=== PATIENT | male | born 1945 | race Caucasian/White ===

== ENCOUNTER 2022-01-17 22:12 | Inpatient (IN) ==
--- NOTE | 2022-01-17 22:56 | Internal Med History&Physical ---
HPI History of Present Illness Patient information: Note initiated : 01/17/22 at 10:55 pm Service Date, if different from initiated Date: [] Patient: Cliff Denton 76 y/o M admitted on for Pneumonia. Chief Complaint: [] History of present illness: Mr. Denton is a 76 year old male who presented to [facility] emergency department for a cough and shortness of breath. Patient does have an extensive medical history that includes oxygen dependent COPD, hypertension, hyperlipidemia, type 2 diabetes mellitus, chronic kidney disease stage III, GERD, obstructive sleep apnea. Provider at the emergency department felt the patient had pneumonia and started the patient on ceftriaxone. At [facility], the patient was afebrile, no leukocytosis, procalcitonin only mildly elevated, a CTA chest did not reveal any evidence of a pulmonary embolism or pulmonary infiltrates. There was questionable pulmonary congestion on the CTA chest. Review of systems Constitutional: no fever, fatigue, or weight loss Eyes: no vision changes or pain Cardiovascular: no chest pain, no palpitations Respiratory: Positive for cough and dyspnea Gastrointestinal: no abdominal pain, no nausea, vomiting, or diarrhea Genitourinary: no dysuria or difficulty voiding Musculoskeletal: no arthralgia or myalgia Integumentary: no skin lesion or wound Neurological: no focal weakness or numbness Psychiatric: no anxiety or depression Physical exam Head: Atraumatic, normal inspection. Eyes: normal appearance, no scleral icterus. Neck: full ROM Respiratory: Nasal cannula oxygen 4 L/min, no respiratory distress. Cardiovascular: normal rate and rhythm, S1, S2. GI/Abdominal: soft, nontender, no guarding. Extremities: full range of motion, nontender. Neurological: CN II-XII intact, intact motor, intact sensation. Psychiatric: normal mood. Skin: warm, normal color PFSH PFSH All Active Problems (Updated 10/24/21 @ 11:39 by JOSIAH Clark) Shortness of breath (Chronic) Gait instability (Chronic) GERD (gastroesophageal reflux disease) (Chronic) Nasal congestion (Chronic) Constipation (Chronic) Carotid bruit (Chronic) Bilateral carotid artery stenosis (Chronic) Cardiac murmur, unspecified (Chronic) Stable angina (Chronic) Blurry vision (Chronic) Type 2 diabetes mellitus with hyperglycemia (Chronic) Leg swelling (Chronic) Fatigue (Chronic) Chest discomfort (Chronic) Hypoxemia (Chronic) Mixed insomnia (Chronic) Benign prostatic hyperplasia (Chronic) Barretts esophagus (Chronic) Allergic rhinitis (Chronic) Cerebrovascular disease (Chronic) Hypertensive disorder (Chronic) Obstructive sleep apnea (Chronic) Dementia (Chronic) Gout (Chronic) Hyperlipidemia (Chronic) COPD (chronic obstructive pulmonary disease) (Chronic) Medical History (Updated 10/24/21 @ 11:39 by JOSIAH Clark) Allergic rhinitis Barretts esophagus Benign prostatic hyperplasia Bilateral carotid artery stenosis Blurry vision Cardiac murmur, unspecified Carotid bruit Cerebrovascular disease Chest discomfort Constipation COPD (chronic obstructive pulmonary disease) Dementia with lewy bodies Fatigue Gait instability GERD (gastroesophageal reflux disease) Gout Hyperlipidemia Hypertensive disorder Hypoxemia Leg swelling Mixed insomnia Nasal congestion Obstructive sleep apnea Shortness of breath Stable angina Type 2 diabetes mellitus with hyperglycemia Surgical History History of hernia repair (~1996) History of lumpectomy (~2013) History of surgery (~2002) "Stoma cap" Family History Mother Chronic obstructive lung disease Arthritis Father Neoplasm of brain Social History marital status: occupational status: retired occupation: [employer]-retired smoking status: Former smoker quit date: 04/14/07 pack-years: 52 smoking status start date: 04/14/1954 smoking status stop date: 04/14/07 alcohol intake frequency: holiday/special occasion only substance use type: does not use MEDS/ALLERGIES Home Medications and Allergies Home Medications Medication Instructions Recorded Confirmed Type allopurinol 300 mg tablet 300 mg PO QDAY 07/03/20 10/24/21 History aspirin 81 mg tablet,delayed 81 mg PO QDAY 07/03/20 10/24/21 History release duloxetine 30 mg capsule,delayed 30 mg PO QDAY 07/03/20 10/24/21 History release guaifenesin 600 mg tablet, 600 mg PO TID 07/03/20 10/24/21 History extended release 12 hr (Mucus Relief ER) loratadine 10 mg tablet 10 mg PO QDAY 07/03/20 10/24/21 History losartan 100 mg tablet 100 mg PO QDAY 07/03/20 10/24/21 History metoprolol succinate 100 mg 100 mg PO QDAY 07/03/20 10/24/21 History tablet,extended release 24 hr pioglitazone 15 mg tablet 15 mg PO QDAY 07/03/20 10/24/21 History rosuvastatin 10 mg tablet 10 mg PO QDAY 07/03/20 10/24/21 History donepezil 5 mg tablet 5 mg PO QDAY 08/10/20 10/24/21 History famotidine 20 mg tablet 20 mg PO QHS 08/10/20 10/24/21 History hydrochlorothiazide 12.5 mg tablet 12.5 mg PO QAM 08/10/20 06/20/21 History magnesium hydroxide [Milk of PO 08/10/20 10/24/21 History Magnesia] albuterol sulfate 90 mcg/actuation 2 puff inhalation Q6H PRN 09/27/20 10/24/21 Rx aerosol inhaler shortness of breath or wheezing #8.5 grams budesonide 160 mcg-glycopyr 9 2 inh inhalation BID #10.7 grams 06/27/21 10/24/21 Rx mcg-formot 4.8 mcg/actuation HFA inhaler (Breztri Aerosphere) carboxymethylcellulose sodium 0.5 1 drp ophthalmic (eye) TID 10/24/21 10/24/21 History % eye drops (Refresh Tears) hydrocortisone 1 % topical cream 1 applic topical BID PRN 10/24/21 10/24/21 History polyethylene glycol 3350 17 4 g PO QHS 10/24/21 10/24/21 History gram/dose oral powder (Miralax) quetiapine 300 mg tablet 600 mg PO QHS 10/24/21 10/24/21 History Allergies Allergy/AdvReac Type Severity Reaction Status Date / Time No Known Drug Allergies Allergy Verified 10/24/21 10:30 A/P Narrative A/P Narrative: Assessment: 76 year old male with a history of oxygen dependent COPD, HTN, HLD, DM II, CKD III, GERD, JET, admitted for community acquired pneumonia. #Cough and dyspnea of uncertain etiology #COPD with oxygen dependence #Type 2 diabetes mellitus #Hypertension #Hyperlipidemia #GERD #Valadez's esophagus #Dementia #JET Plan -Admission CBC and IPP, procalcitonin. -Lasix 60 mg IV once. -Sputum gram stain and culture. -Follow blood cultures from [facility]. -Duonebs Q6 hrs and albuterol prn. -Humalog SSI-low dose. -Oxygen supplementation. -Home medication reconcilliation. -PT consult. -Consistent carbohydrate diet. -DVT ppx: Heparin SQ Time Spent With Patient Time: Total time spent is greater than 50% in coordination of care (as documented) at patient's floor/unit and/or counseling patient:
[2022-01-18] MEDS ORDERED: ONDANSETRON 4 MG/2 ML VIAL IV PRN (00:53)
[2022-01-18] MEDS ORDERED: AZITHROMYCIN 500 MG in DEXTROSE 5% IN WATER 250 ML IV SCH (00:53)
[2022-01-18] MEDS ORDERED: DEXTROSE 31 GM ORAL.SUSP PO PRN (00:53)
[2022-01-18] MEDS ORDERED: cefTRIAXone 1 GM VIAL IV SCH (00:53)
[2022-01-18] MEDS ORDERED: ALBUTEROL SULFATE 2.5 MG/3 ML NEBULIZER NEB PRN (00:53)
[2022-01-18] MEDS ORDERED: DEXTROSE 50% 50 ML VIAL IV PRN (00:53)
--- OUTSIDE RECORDS SUMMARY | 2022-01-18 00:53 | External Medical Summary ---
:1945 Author Care Team Providers Name Role Phone HORTENSIA SIMPSON DO Primary Care Provider [phone] Allergies Code Code System Name Reaction Severity Status Onset NKDA Medications Name Status Start Date Stop Date allopurinol 300 mg tablet Active Not av ailable amlodipine 10 mg tablet Active Not avai lable Anoro Ellipta 62.5 mcg-25 mcg/actuation powder for Active Not available inhalation aspirin 81 mg tablet,delayed release Active Not available TAKE 1 TABLET BY MOUTH EVERY DAY Colace Clear 50 mg capsule Completed 10/26 Take 1 capsule every day by oral route as directed. Combivent Respimat 20 mcg-100 mcg/actuation solution for Complet ed 10/27/2019 inhalation donepezil 10 mg tablet Active Not avail able donepezil 5 mg tablet Active Not availa ble duloxetine 30 mg capsule,delayed release Active Not available fluconazole 150 mg tablet Completed 2018 fluticasone propionate 50 mcg/actuation nasal Active Not available spray,suspension hydrochlorothiazide 25 mg tablet Active Not available ipratropium bromide 42 mcg (0.06 %) nasal spray Completed 10/27/2019 ketorolac 0.5 % eye drops Completed 2019 loratadine 10 mg tablet Active Not avai lable TAKE ONE TABLET BY MOUTH EVERY DAY losartan 100 mg tablet Active Not avail able TAKE 1 TABLET BY MOUTH DAILY Metamucil 0.4 gram capsule Active Not a vailable Take 2 capsules every day by oral route in the morning. metoprolol succinate ER 100 mg tablet,extended release Active Not available 24 hr Milk of Magnesia Active Not available Mucus Relief ER 600 mg tablet, extended release Active Not available TAKE 1 TABLET BY MOUTH 3 TIMES DAILY WITH 8 (OZ) OF WATER ldbkebaz-rskxpmenr-mlfxnzqb 3.5 mg/mL-10,000 Completed 10/27/2019 unit/mL-0.1% eye drops nystatin 100,000 unit/mL oral suspension Completed 10/27/2019 omeprazole 40 mg capsule,delayed release Completed 10/27/2019 oxygen Active Not available 2L pantoprazole 40 mg tablet,delayed release Active Not available TAKE ONE TABLET BY MOUTH EVERY DAY prednisolone acetate 1 % eye drops,suspension Active Not available prednisone 10 mg tablet Completed 03/05/20 19 quetiapine 25 mg tablet Completed 10/27/19 20 quetiapine 50 mg tablet Active Not avai lable rosuvastatin 10 mg tablet Active Not av ailable TAKE 1 TABLET BY MOUTH EVERY DAY sertraline 50 mg tablet Active Not avai lable simvastatin 20 mg tablet Completed 019 tamsulosin 0.4 mg capsule Active Not av ailable trazodone 100 mg tablet Active Not avai lable trazodone 50 mg tablet Active Not avail able Trelegy Ellipta 100 mcg-62.5 mcg-25 mcg powder for inhalation Ac tive Not available Inhale 1 puff every day by inhalation route for 30 days. Ventolin HFA 90 mcg/actuation aerosol inhaler Completed 10/27/2019 Problems Name Status Onset Date Source Hyperlipidemia Active 10/27/2019 Gout Active 10/27/2019 Obstructive Sleep Apnea Syndrome Active 10/27/2019 Hypertensive Disorder Active 10/27/2019 Cerebrovascular Disease Active 10/27/2019 Allergic Rhinitis Active 10/27/2019 Chronic Obstructive Lung Disease Active 10/27/2019 Valadez's Esophagus Active 10/27/2019 Benign Prostatic Hyperplasia Active 10/27/2019 Mixed Insomnia Active 10/27/2019 Hypoxemia Active 10/27/2019 Ex-smoker Active 10/27/2019 Dementia Active 10/27/2019 Procedures Date Name Performed by 04/14/2013 Lumpectomy Information not avai lable 04/14/2002 Stoma Cap Information not avai lable 04/14/1996 Hernia Repair Information not avai lable 1945 Hernia Repair W/mesh Information not sina ilable Results Lab Results None recorded. Past Encounters None recorded. Social History Tobacco Smoking Status Former Smoker (1 pack per day) Notes : Quit in 2007 Vaccine List Vaccine Type influenza, injectable, quadrivalent 01/12/2019 Plan of Care Reminders Provider Appointments None recorded. Lab None recorded. Referral None recorded. Procedures None recorded. Surgeries None recorded. Imaging None recorded. Vitals 2020 01:00PM Established Patient 30 Height Weight BMI Blood Pressure 5 ft 11 in 240 lbs 33.5 kg/m2 152/72 mm[Hg] 12/29/2019 11:45AM Post-Op Height Weight BMI Blood Pressure 5 ft 11 in 243 lbs 33.9 kg/m2 110/62 mm[Hg] 10/27/2019 01:30PM New Patient 58 Height Weight BMI Blood Pressure 5 ft 11 in 240 lbs 33.5 kg/m2 148/66 mm[Hg] 03/05/2019 08:30AM New Patient 30 Height Weight BMI Blood Pressure 5 ft 11 in 228 lbs 31.8 kg/m2 (1) 141/64 mm[H g] (2) 158/67 mm[Hg ]
--- OUTSIDE RECORDS SUMMARY | 2022-01-18 00:53 | External Medical Summary ---
:1945 Author Care Team Providers Name Role Phone VIOLETTA ARIAS DDS Dentist [phone] Allergies Code Code System Name Reaction Severity Status Onset NKDA Medications Name Status Start Date Stop Date albuterol sulfate Active Not available albuterol sulfate HFA 90 mcg/actuation aerosol inhaler Active Not available inhale two puffs by mouth every six millicent rs as needed for shortness of breath or wheezing allopurinol Active Not available allopurinol 300 mg tablet Active Not av ailable TAKE ONE TABLET BY MOUTH EVERY DAY amlodipine 10 mg tablet Active Not avai lable TAKE ONE TABLET BY MOUTH EVERY DAY amlodipine 5 mg tablet Active Not avail able TAKE ONE TABLET BY MOUTH EVERY DAY (DOSE DECREASE) amoxicillin 875 mg-potassium clavulanate 125 mg tablet Active Not available TAKE ONE TABLET BY MOUTH EVERY 12 HOURS aspirin Active Not available aspirin 81 mg tablet,delayed release Active Not available TAKE ONE TABLET BY MOUTH EVERY DAY ClearLax 17 gram oral powder packet Active Not available MIX ONE PACKET WITH EIGHT OUNCES OF IN FLUID AND DRINK ONCE DEBORAH LY Cymbalta Active Not available donepezil Active Not available donepezil 10 mg tablet Active Not avail able take one half tablet by mouth twice daily duloxetine 30 mg capsule,delayed release Active Not available take one capsule by mouth at bedtime (stop trazodone) famotidine Active Not available famotidine 20 mg tablet Active Not avai lable take one tablet by mouth at bedtime guaifenesin Active Not available hydrochlorothiazide 12.5 mg tablet Active Not available TAKE ONE TABLET BY MOUTH DAILY hydrochlorothiazide 25 mg tablet Active Not available TAKE ONE TABLET BY MOUTH EVERY DAY hydrocortisone Active Not available ipratropium bromide 42 mcg (0.06 %) nasal spray Active Not available instill ONE SPRAY in EACH nostril FOUR TIMES DAILY DIRECTED loratadine Active Not available loratadine 10 mg tablet Active Not avai lable TAKE ONE TABLET BY MOUTH EVERY DAY losartan Active Not available losartan 100 mg tablet Active Not avail able TAKE ONE TABLET BY MOUTH EVERY DAY metoprolol succinate Active Not availab le metoprolol succinate ER 100 mg tablet,extended release 24 hr Act rosio Not available take one tablet by mouth daily Milk of Magnesia Active Not available Milk of Magnesia 400 mg/5 mL oral suspension Active Not available give 30 ml once daily for constipation Miralax Active Not available montelukast 10 mg tablet Active Not sina ilable take one tablet by mouth once daily (due for appointment) Mucus Relief ER 600 mg tablet, extended release Active Not available take one tablet by mouth three times daily with 8 ounces of elvia er mupirocin 2 % topical ointment Active N ot available apply a small amount topically to affec emilia area three times daily for five days oxygen Active Not available pantoprazole 40 mg tablet,delayed release Active Not available TAKE ONE TABLET BY MOUTH EVERY DAY pioglitazone Active Not available pioglitazone 15 mg tablet Active Not av ailable TAKE ONE TABLET BY MOUTH EVERY DAY WITH A MEAL PreviDent 5000 Booster Plus 1.1 % dental paste Active Not available BRUSH TWICE DAILY DIRECTED FOR 30 DAYS quetiapine Active Not available quetiapine 100 mg tablet Active Not sina ilable TAKE ONE TABLET BY MOUTH AT BEDTIME quetiapine ER 150 mg tablet,extended release 24 hr Active Not available TAKE ONE TABLET BY MOUTH AT BEDTIME FOR ONE MONTH, TO BE ADDED TO 400 MG AT BEDTIME FOR TOTAL BEDTIME DOSE OF 550 MG quetiapine ER 200 mg tablet,extended release 24 hr Active Not available TAKE ONE TABLET BY MOUTH AT BEDTIME (DOSE INCREASE) quetiapine ER 300 mg tablet,extended release 24 hr Active Not available TAKE ONE TABLET BY MOUTH AT BEDTIME (DOSE INCREASE) quetiapine ER 400 mg tablet,extended release 24 hr Active Not available TAKE 1 TABLET BY MOUTH AT BEDTIME quetiapine ER 50 mg tablet,extended release 24 hr Active Not available TAKE 2 TABLETS BY MOUTH EVERY DAY rosuvastatin Active Not available rosuvastatin 10 mg tablet Active Not av ailable TAKE 1 TABLET BY MOUTH EVERY DAY sertraline 50 mg tablet Active Not avai lable take one tablet by mouth daily tamsulosin 0.4 mg capsule Active Not av ailable TAKE TWO CAPSULES BY MOUTH EVERY DAY Trelegy Ellipta Active Not available Problems None recorded. Procedures None recorded. Results Lab Results None recorded. Past Encounters 06/27/[address]: [address] [place] [address], [place] [address], Ph. 05/17/2021 Preventive Dental Procedure; Dental Becky es Violetta Arias, DDS: [address] [place] [id number], Ph. Social History Tobacco Smoking Status Former Smoker Notes: quit 200 8 Vaccine List None recorded. Plan of Care Patient Instructions [place] and floss 2-3 times daily Eat a balanced diet Limit soda/sports drinks consumption to lower your risk of tooth decay Recommend desensitizing toothpaste for s ensitivity Recommend OTC fluoride rinse (ACT or oth ers) Use a soft bristle toothbrush Follow up with your hygienist Reminders Provider Appointments None recorded. Lab None recorded. Referral None recorded. Procedures None recorded. Surgeries None recorded. Imaging None recorded. Vitals Blood Pressure 128/58 mm[Hg]
[2022-01-18] MEDS: 0.9 % SODIUM CHLORIDE 10 ML SYRINGE IV SCH ×4 (01:45→21:42)
[2022-01-18] MEDS: IPRATROPIUM/ALBUTEROL 3 ML AMPUL.NEB NEB SCH ×4 (01:45→18:57)
[2022-01-18] MEDS ORDERED: IPRATROPIUM/ALBUTEROL 3 ML AMPUL.NEB NEB ONE (01:52)
[2022-01-18 02:38] LABS: Basophils # (Auto) 0.04 K/mcL (0.00-0.30); Basophils % (Auto) 0.4 % (0.0-2.0); Eosinophils # (Auto) 0.12 K/mcL (0.00-0.70); Eosinophils % (Auto) 1.2 % (0.0-7.0); Hematocrit 33.8 % (40.1-51.0); Hemoglobin 10.6 g/dL (13.7-17.5); Lymphocytes # (Auto) 1.58 K/mcL (1.50-4.80); Lymphocytes % (Auto) 15.5 % (15.5-49.0); Mean Cell Volume 103.4 fL (80.0-100.0); Mean Corpuscular HGB Conc 31.4 g/dL (31.0-36.0); Mean Platelet Volume 9.2 fL (8.8-12.5); Monocytes # (Auto) 1.28 K/mcL (0.10-0.90); Monocytes % (Auto) 12.6 % (1.0-12.0); Neutrophils % (Auto) 69.3 % (38.0-78.0); Platelet Count 227 K/mcL (140-440); RBC 3.27 M/mcL (4.63-6.08); WBC 10.2 K/mcL (4.5-11.0)
[2022-01-18 06:25] LABS: Basophils # (Auto) 0.03 K/mcL (0.00-0.30); Basophils % (Auto) 0.3 % (0.0-2.0); Eosinophils % (Auto) 0.9 % (0.0-7.0); Hematocrit 31.1 % (40.1-51.0); Hemoglobin 10.4 g/dL (13.7-17.5); Lymphocytes % (Auto) 11.2 % (15.5-49.0); Mean Cell Volume 94.8 fL (80.0-100.0); Mean Corpuscular HGB Conc 33.4 g/dL (31.0-36.0); Mean Platelet Volume 9.1 fL (8.8-12.5); Monocytes # (Auto) 1.22 K/mcL (0.10-0.90); Monocytes % (Auto) 11.3 % (1.0-12.0); Neutrophils % (Auto) 75.5 % (38.0-78.0); Platelet Count 265 K/mcL (140-440); RBC 3.28 M/mcL (4.63-6.08); Red Cell Distribution Width 14.9 % (11.5-14.5); WBC 10.8 K/mcL (4.5-11.0)
[2022-01-18 06:44] LABS: ALT/SGPT 26 U/L (<40); AST/SGOT 27 U/L (<40); Albumin 3.2 gm/dL (3.2-5.2); Albumin/Globulin Ratio 0.9 (1.0-2.3); Alkaline Phosphatase 100 U/L (39-117); Bilirubin,Direct 0.4 mg/dL (<0.3); Bilirubin,Total 0.7 mg/dL (0.1-1.0); Blood Urea Nitrogen 35 mg/dL (8-23); Calcium 8.7 mg/dL (8.6-10.4); Carbon Dioxide 21 mmol/L (22-30); Chloride 99 mmol/L (96-108); Globulin 3.7 gm/dL (2.2-3.7); Glomerular Filtration Rate 40; Glucose 145 mg/dL (70-105); Lactate Dehydrogenase 233 U/L (135-225); Phosphorous 3.2 mg/dL (2.5-4.5); Triglycerides 84 mg/dL (<150); Uric Acid 6.4 mg/dL (2.5-8.0)
[2022-01-18] MEDS: INSULIN LISPRO 1 UNIT/0.01 ML UNIT SQ SCH ×4 (07:35→21:58)
[2022-01-18] MEDS: DOCUSATE SODIUM 100 MG CAPSULE PO SCH ×2 (10:27→21:42)
[2022-01-18] MEDS: HEPARIN 5,000 UNIT/ML VIAL SQ SCH ×2 (10:27→21:41)
[2022-01-18] MEDS ORDERED: IOPAMIDOL 100 ML BOTTLE IV ONE (12:44)
--- NOTE | 2022-01-18 13:02 | Cat Scan Report ---
INDICATION: Acute on chronic hypoxia, elevated d-dimer. COMPARISON: Previous chest x-ray dated 01/17/2022. Previous CT scan dated 10/04/2020 TECHNIQUE: Axial images obtained through the chest. 80ml Isovue 370 injected intravenously, and scanning was performed during pulmonary arterial phase. Sagittally and coronally reformatted images were obtained. MIP reformatted images. FINDINGS: Lungs:There is centrilobular emphysema with upper lobe predominance. Appearance is consistent with smoking history. There is no parenchymal consolidation. No evidence for significant pneumonia. There is peribronchial thickening consistent with bronchitis. Interstitial edema is possible. There is increased reticular abnormality which may also be related to interstitial edema. There is mild honeycombing at both lung bases. There is no bronchiectasis. Pulmonary fibrosis is suspected. Continued follow-up recommended. Mediastinum, vascular:Main pulmonary artery, right pulmonary artery, left pulmonary artery are negative. No intraluminal filling defects. No lobar, segmental, or subsegmental emboli. Thoracic aorta is negative. No aneurysmal dilatation. There is borderline enlargement of the main pulmonary artery. This measures 3.0 cm in cross-sectional diameter No pathologic mediastinal or hilar adenopathy Heart:No cardiomegaly. No pericardial effusion. No reflux of contrast material into the inferior cava or hepatic veins There is severe coronary artery calcification Pleura:No significant pleural effusion. No pleural mass or calcification Axilla, supraclavicular regions, chest wall:No pathologic axillary or supraclavicular adenopathy. Musculoskeletal:Negative thoracic spine. No compression fracture. No lytic lesion. No rib or sternal lesions Upper Abdomen:Small hiatal hernia. Otherwise negative IMPRESSION: 1. Negative pulmonary CTA 2. Centrilobular emphysema 3. Reticular abnormality and mild honeycombing. Pulmonary fibrosis is possible. 4. Peribronchial thickening be due to bronchitis or suspicious edema 5. Severe coronary artery calcification 6. Small hiatal hernia The exam was performed using radiation dose optimization techniques including, but not limited to, automated exposure control, adjustment of the mA and/or kV according to patient size and use of iterative reconstruction technique. Interpreted and Authenticated by: Lico Marcos 01/18/22
[2022-01-18] MEDS ORDERED: FUROSEMIDE 100 MG/10 ML VIAL IV SCH (14:10)
[2022-01-18] MEDS: BUDESONIDE 1 PUFF INHALER INH SCH (19:00)
[2022-01-18] MEDS ORDERED: POLYETHYLENE GLYCOL 3350 17 GM PACKET PO PRN (19:34)
[2022-01-18] MEDS ORDERED: QUEtiapine 100 MG TABLET PO ONE (21:00)
[2022-01-18] MEDS: FAMOTIDINE 20 MG TABLET PO SCH (21:41)
[2022-01-18] MEDS: SENNOSIDES 1 TABLET PO SCH (21:41)
[2022-01-18] MEDS: guaiFENesin 600 MG TAB.SR.12H PO SCH (21:41)
[2022-01-19] MEDS: IPRATROPIUM/ALBUTEROL 3 ML AMPUL.NEB NEB SCH ×4 (01:04→19:10)
[2022-01-19] MEDS: 0.9 % SODIUM CHLORIDE 10 ML SYRINGE IV SCH ×3 (05:35→20:34)
[2022-01-19 06:42] LABS: Basophils # (Auto) 0.04 K/mcL (0.00-0.30); Basophils % (Auto) 0.4 % (0.0-2.0); Eosinophils # (Auto) 0.23 K/mcL (0.00-0.70); Eosinophils % (Auto) 2.6 % (0.0-7.0); Hematocrit 31.4 % (40.1-51.0); Hemoglobin 10.5 g/dL (13.7-17.5); Lymphocytes # (Auto) 1.41 K/mcL (1.50-4.80); Lymphocytes % (Auto) 15.8 % (15.5-49.0); Mean Cell Volume 94.9 fL (80.0-100.0); Mean Corpuscular HGB Conc 33.4 g/dL (31.0-36.0); Mean Platelet Volume 9.1 fL (8.8-12.5); Monocytes # (Auto) 0.94 K/mcL (0.10-0.90); Monocytes % (Auto) 10.5 % (1.0-12.0); Neutrophils % (Auto) 68.7 % (38.0-78.0); Platelet Count 276 K/mcL (140-440); RBC 3.31 M/mcL (4.63-6.08); Red Cell Distribution Width 15.3 % (11.5-14.5)
[2022-01-19] MEDS: INSULIN LISPRO 1 UNIT/0.01 ML UNIT SQ SCH ×4 (07:05→20:34)
[2022-01-19 07:28] LABS: ALT/SGPT 27 U/L (<40); AST/SGOT 27 U/L (<40); Albumin 3.6 gm/dL (3.2-5.2); Albumin/Globulin Ratio 1.3 (1.0-2.3); Alkaline Phosphatase 102 U/L (39-117); Bilirubin,Direct 0.3 mg/dL (<0.3); Bilirubin,Total 0.5 mg/dL (0.1-1.0); Blood Urea Nitrogen 26 mg/dL (8-23); Calcium 8.7 mg/dL (8.6-10.4); Carbon Dioxide 23 mmol/L (22-30); Chloride 100 mmol/L (96-108); Globulin 2.7 gm/dL (2.2-3.7); Glomerular Filtration Rate 47; Glucose 124 mg/dL (70-105); Lactate Dehydrogenase 233 U/L (135-225); Phosphorous 4.1 mg/dL (2.5-4.5); Triglycerides 165 mg/dL (<150)
[2022-01-19] MEDS: BUDESONIDE 1 PUFF INHALER INH SCH ×2 (08:05→21:26)
[2022-01-19] MEDS: ASPIRIN 81 MG TAB.CHEW PO SCH (08:06)
[2022-01-19] MEDS: DOCUSATE SODIUM 100 MG CAPSULE PO SCH ×2 (08:08→19:03)
[2022-01-19] MEDS: guaiFENesin 600 MG TAB.SR.12H PO SCH ×3 (08:08→20:34)
[2022-01-19] MEDS: METOPROLOL SUCCINATE 50 MG TAB.XL.24H PO SCH (08:08)
[2022-01-19] MEDS: ATORVASTATIN 20 MG TABLET PO SCH (08:09)
[2022-01-19] MEDS: DONEPEZIL 10 MG TABLET PO SCH (08:09)
[2022-01-19] MEDS: HEPARIN 5,000 UNIT/ML VIAL SQ SCH ×2 (08:10→20:34)
[2022-01-19] MEDS: LORATADINE 10 MG TABLET PO SCH (08:10)
[2022-01-19] MEDS: DULoxetine 30 MG CAPSULE PO SCH (08:10)
[2022-01-19] MEDS: ALLOPURINOL 300 MG TABLET PO SCH (08:10)
[2022-01-19] MEDS: NUPLAZID 34 MG CAPSULE PO SCH (08:21)
[2022-01-19] MEDS ORDERED: FUROSEMIDE 100 MG/10 ML VIAL IV ONE (10:43)
--- NOTE | 2022-01-19 14:09 | Internal Med Progress Note ---
SUBJECTIVE Subjective Patient information: Note initiated : 01/19/22 at 2:05 pm Service Date, if different from initiated Date: [] Patient: Cliff Denton 76 y/o M admitted on 01/18/22 for Pneumonia. Chief Complaint: [] Interval history: Mr. Denton is a 76 year old male who presented to [facility] emergency department for a cough and shortness of breath. Patient does have an extensive medical history that includes oxygen dependent COPD, hypertension, hyperlipidemia, type 2 diabetes mellitus, chronic kidney dis ease stage III, GERD, obstructive sleep apnea. Provider at the emergency department felt the patient had pneumonia and started the patient on ceftriaxone. At [facility], the patient was afebrile, no leukocytosis, procalcitonin only mildly elevated, a CTA chest did not reveal any evidence of a pulmonary embolism or pulmonary infiltrates. There was questionable pulmonary congestion on the CTA chest. 01/19 Vitals similar to yesterday, appears to be a resting more comfortably today. 1 more dose of Lasix 60 mg IV today. Patient is likely near his baseline. CTA chest was negative for pulmonary embolism, there was reticular abnormality and mild honeycombing possibly secondary to pulmonary fibrosis, peribronchial thickening was felt to be due to edema versus bronchitis. Patient recently had a transthoracic echocardiogram, 11/01/2021 which showed an LVEF of 60 to 65%, normal right ventricular size and function, mild to moderate aortic sclerosis with mild stenosis.The hazardous materials waste technician was unable to actually access left ventricular diastolic function due to indeterminant parameters. Physical exam Head: Atraumatic, normal inspection. Eyes: normal appearance, no scleral icterus. Neck: full ROM Respiratory: Nasal cannula oxygen 3.5 L/min, no respiratory distress. Cardiovascular: normal rate and rhythm, S1, S2. GI/Abdominal: soft, nontender, no guarding. Extremities: full range of motion, nontender. Neurological: CN II-XII intact, intact motor, intact sensation. Psychiatric: normal mood. Skin: warm, normal color Constitutional Vitals: Vital Signs Temp Pulse Resp BP Pulse Ox O2 Del Method O2 Flow Rate 98.2 F 81 20 145/76 92 Bubble Humidifier 3.5 01/19/22 11:42 01/19/22 13:35 01/19/22 13:35 01/19/22 11:42 01/19/22 13:35 01/19/22 13:35 01/19/22 13:35 Period Temp Pulse Resp BP Sys/Gatica Pulse Ox O2 Del Method O2 Flow Rate Last 24 Hr 97.1 F-98.9 F 75-87 14-20 112-155/48-76 90-97 High Flow Nasal Cannula-Nasal Cannula, Bubble Humidifier 2.5-3.5 Intake and Output 01/19/22 01/19/22 01/19/22 05:59 13:59 21:59 Intake Total 720 960 480 Output Total 930 Balance 720 30 480 Intake & Output: Intake & Output 01/19/22 01/19/22 01/19/22 05:59 13:59 21:59 Intake Total 720 960 480 Output Total 930 Balance 720 30 480 Intake: Oral 720 960 480 Output: Void Amount 930 Other: Meal Breakfast Lunch Percent of Meal Consumed 100% 75% Feeding Ability Independent Independent Urine Appearance Clear Urine Color Bright Yellow Urine Odor Normal Stool Size Moderate Stool Color Yellow # Voids 1 # Bowel Movements 1 OBJ DATA Labs CBC & Chem 7: 01/19/22 05:43 01/19/22 05:43 Labs: Abnormal Lab Results 01/19/22 01/19/22 01/18/22 05:43 05:43 07:43 RBC 3.31 L Hgb 10.5 L Hct 31.4 L MCV RDW 15.3 H Immature Gran % (Auto) 2.0 H Lymph % (Auto) Finney % (Auto) Lymph # (Auto) 1.41 L Finney # (Auto) 0.94 H Immature Gran # 0.18 H Absolute Neutrophils D-Dimer Carbon Dioxide BUN 26 H Creatinine 1.4 H Glucose 124 H Direct Bilirubin 0.3 H Lactate Dehydrogenase 233 H NT-Pro-B Natriuret Pep 536.6 H Albumin/Globulin Ratio Triglycerides 165 H Procalcitonin 01/18/22 01/18/22 01/18/22 07:43 05:19 05:18 RBC 3.28 L Hgb 10.4 L Hct 31.1 L MCV RDW 14.9 H Immature Gran % (Auto) 0.8 H Lymph % (Auto) 11.2 L Finney % (Auto) Lymph # (Auto) 1.20 L Finney # (Auto) 1.22 H Immature Gran # 0.09 H Absolute Neutrophils 8.12 H D-Dimer 1.61 H Carbon Dioxide 21 L BUN 35 H Creatinine 1.6 H Glucose 145 H Direct Bilirubin 0.4 H Lactate Dehydrogenase 233 H NT-Pro-B Natriuret Pep Albumin/Globulin Ratio 0.9 L Triglycerides Procalcitonin 01/18/22 01/18/22 01:22 01:22 RBC 3.27 L Hgb 10.6 L Hct 33.8 L MCV 103.4 H RDW 16.0 H Immature Gran % (Auto) 1.0 H Lymph % (Auto) Finney % (Auto) 12.6 H Lymph # (Auto) Finney # (Auto) 1.28 H Immature Gran # 0.10 H Absolute Neutrophils D-Dimer Carbon Dioxide BUN Creatinine Glucose Direct Bilirubin Lactate Dehydrogenase NT-Pro-B Natriuret Pep Albumin/Globulin Ratio Triglycerides Procalcitonin 0.14 H Meds: Medications Acetaminophen (Acetaminophen 325 Mg Tablet) 650 mg PO Q6HP PRN; Protocol PRN Reason: Per Pain Protocol/Fever > 101 Albuterol Sulfate (Albuterol Sulfate 2.5 Mg/3 Ml Nebulizer) 2.5 mg NEB Q2HP PRN PRN Reason: Shortness Of Breath Albuterol/Ipratropium (Ipratropium/Albuterol 3 Ml Ampul.Neb) 3 ml NEB Q6HRT [facility] Last Admin: 01/19/22 13:41 Dose: 3 ml Allopurinol (Allopurinol 300 Mg Tablet) 300 mg PO QDAY [facility] Last Admin: 01/19/22 08:10 Dose: 300 mg Aspirin (Aspirin 81 Mg Tab.Chew) 81 mg PO DAILY [facility] Last Admin: 01/19/22 08:06 Dose: 81 mg Atorvastatin Calcium (Atorvastatin 20 Mg Tablet) 20 mg PO QDAY [facility] Last Admin: 01/19/22 08:09 Dose: 20 mg Budesonide (Budesonide 1 Puff Inhaler) 2 puff INH BID [facility] Last Admin: 01/19/22 08:05 Dose: 2 puff Dextrose (Dextrose 50% 50 Ml Vial) 0 ml IV UD PRN PRN Reason: Per Sliding Scale Diagnostic Test (Pha) (Accu-Chek 1 Each Strip) 1 each FS ACHS [facility] Last Admin: 01/19/22 11:30 Dose: 1 each Docusate Sodium (Docusate Sodium 100 Mg Capsule) 100 mg PO BID [facility] Last Admin: 01/19/22 08:08 Dose: 100 mg Donepezil HCl (Donepezil 10 Mg Tablet) 5 mg PO QDAY [facility] Last Admin: 01/19/22 08:09 Dose: 5 mg Duloxetine HCl (Duloxetine 30 Mg Capsule) 30 mg PO QDAY [facility] Last Admin: 01/19/22 08:10 Dose: 30 mg Famotidine (Famotidine 20 Mg Tablet) 20 mg PO QHS [facility] Last Admin: 01/18/22 21:41 Dose: 20 mg Glucose (Dextrose 31 Gm Oral.Susp) 15 gm PO PRN PRN PRN Reason: Hypoglycemia Guaifenesin (Guaifenesin 600 Mg Tab.Sr.12h) 600 mg PO TID [facility] Last Admin: 01/19/22 08:08 Dose: 600 mg Heparin Sodium (Porcine) (Heparin 5,000 Unit/Ml Vial) 5,000 unit SQ Q12 [facility] Last Admin: 01/19/22 08:10 Dose: 5,000 unit Insulin Human Lispro (Insulin Lispro 1 Unit/0.01 Ml Unit) 0 unit SQ [facility]; Protocol Last Admin: 01/19/22 11:31 Dose: Not Given Loratadine (Loratadine 10 Mg Tablet) 10 mg PO QDAY [facility] Last Admin: 01/19/22 08:10 Dose: 10 mg Metoprolol Succinate (Metoprolol Succinate 50 Mg Tab.Xl.24h) 100 mg PO DAILY [facility] Last Admin: 01/19/22 08:08 Dose: 100 mg Ondansetron HCl (Ondansetron 4 Mg/2 Ml Vial) 4 mg IV Q6HP PRN PRN Reason: Nausea And Vomiting Nuplazid 34 Mg (Capsule) 1 dose PO QDAY [facility] Last Admin: 01/19/22 08:21 Dose: Not Given Polyethylene Glycol (Polyethylene Glycol 3350 17 Gm Packet) 17 gm PO HSP PRN PRN Reason: Constipation Quetiapine Fumarate (Quetiapine 100 Mg Tablet) 200 mg PO [facility] Senna (Sennosides 1 Tablet) 2 tab PO [facility] Last Admin: 01/18/22 21:41 Dose: 2 tab Sodium Chloride (0.9 % Sodium Chloride 10 Ml Syringe) 10 ml IV Q8 [facility] Last Admin: 01/19/22 13:33 Dose: 10 ml A/P Narrative A/P Narrative: Assessment: 76 year old male with a history of oxygen dependent COPD, HTN, HLD, DM II, CKD III, GERD, JET, dementia who lives in assisted living admitted for dyspnea and cough possibly secondary to mild CHF. #Cough and dyspnea of uncertain etiology, possibly CHF #COPD with oxygen dependence #Type 2 diabetes mellitus #Hypertension #Hyperlipidemia #GERD #Valadez's esophagus #Dementia #JET #Polypharmacy Plan -Lasix 60 mg IV once today. -Follow sputum gram stain and culture. -Duonebs Q6 hrs and albuterol prn. -Humalog SSI-low dose. -Oxygen supplementation. -Holding home losartan, pioglitazone. -Reduced dose Seroquel. -Continue home allopurinol, aspirin, atorvastatin, Aricept, Cymbalta, Pepcid, Mucinex, loratadine, Toprol, Nuplazid. -PT consult. -Consistent carbohydrate diet. -DVT ppx: Heparin SQ -Disposition: Back to assisted living when stable. Probably will not resume pioglitazone as that may contribute to congestive heart failure symptoms. Time Spent With Patient Time: Total time spent is greater than 50% in coordination of care (as documented) at patient's floor/unit and/or counseling patient: QUALITY VTE Deep Vein Thrombosis/Pulmonary Embolism Present on Admission: No
[2022-01-19] MEDS ORDERED: AZITHROMYCIN 250 MG TABLET PO SCH (17:00)
[2022-01-19] MEDS: SENNOSIDES 1 TABLET PO SCH (19:04)
[2022-01-19] MEDS: FAMOTIDINE 20 MG TABLET PO SCH (20:34)
[2022-01-19] MEDS: ACETAMINOPHEN 325 MG TABLET PO PRN (21:00)
[2022-01-19] MEDS ORDERED: QUEtiapine 100 MG TABLET PO SCH (21:00)
[2022-01-19] MEDS: METOPROLOL TARTRATE 5 MG/5 ML VIAL IV PRN (22:47)
[2022-01-19] MEDS: METOPROLOL TARTRATE 5 MG/5 ML VIAL IV ONE ×2 (22:47→22:54)
[2022-01-20] MEDS: IPRATROPIUM/ALBUTEROL 3 ML AMPUL.NEB NEB SCH ×4 (01:33→19:18)
[2022-01-20] MEDS ORDERED: METOPROLOL TARTRATE 5 MG/5 ML VIAL IV ONE ×3 (02:41→07:08)
[2022-01-20] MEDS: METOPROLOL TARTRATE 5 MG/5 ML VIAL IV PRN ×2 (02:47→14:00)
[2022-01-20] MEDS: 0.9 % SODIUM CHLORIDE 10 ML SYRINGE IV SCH ×3 (07:06→20:43)
[2022-01-20 07:26] LABS: Blood Urea Nitrogen 27 mg/dL (8-23); Calcium 8.8 mg/dL (8.6-10.4); Carbon Dioxide 23 mmol/L (22-30); Chloride 99 mmol/L (96-108); Glomerular Filtration Rate 52; Glucose 133 mg/dL (70-105)
[2022-01-20] MEDS: INSULIN LISPRO 1 UNIT/0.01 ML UNIT SQ SCH ×4 (07:38→20:43)
[2022-01-20] MEDS: ASPIRIN 81 MG TAB.CHEW PO SCH (08:13)
[2022-01-20] MEDS: guaiFENesin 600 MG TAB.SR.12H PO SCH ×3 (08:13→20:42)
[2022-01-20] MEDS: HEPARIN 5,000 UNIT/ML VIAL SQ SCH ×2 (08:13→20:40)
[2022-01-20] MEDS: METOPROLOL SUCCINATE 50 MG TAB.XL.24H PO SCH (08:13)
[2022-01-20] MEDS: DULoxetine 30 MG CAPSULE PO SCH (08:14)
[2022-01-20] MEDS: LORATADINE 10 MG TABLET PO SCH (08:14)
[2022-01-20] MEDS: DOCUSATE SODIUM 100 MG CAPSULE PO SCH ×2 (08:14→20:42)
[2022-01-20] MEDS: DONEPEZIL 10 MG TABLET PO SCH (08:14)
[2022-01-20] MEDS: ALLOPURINOL 300 MG TABLET PO SCH (08:15)
[2022-01-20] MEDS: ATORVASTATIN 20 MG TABLET PO SCH (08:15)
[2022-01-20] MEDS: NUPLAZID 34 MG CAPSULE PO SCH (08:19)
[2022-01-20] MEDS: BUDESONIDE 1 PUFF INHALER INH SCH ×2 (08:22→20:44)
[2022-01-20] MEDS ORDERED: METOPROLOL TARTRATE 50 MG TABLET PO SCH ×3 (10:18→21:00)
--- NOTE | 2022-01-20 15:57 | Internal Med Progress Note ---
SUBJECTIVE Subjective Patient information: Note initiated : 01/20/22 at 3:53 pm Service Date, if different from initiated Date: [] Patient: Cliff Denton 76 y/o M admitted on 01/18/22 for Pneumonia. Chief Complaint: [] Interval history: Mr. Denton is a 76 year old male who presented to [facility] emergency department for a cough and shortness of breath. Patient does have an extensive medical history that includes oxygen dependent COPD, hypertension, hyperlipidemia, type 2 diabetes mellitus, chronic kidney dis ease stage III, GERD, obstructive sleep apnea. Provider at the emergency department felt the patient had pneumonia and started the patient on ceftriaxone. At [facility], the patient was afebrile, no leukocytosis, procalcitonin only mildly elevated, a CTA chest did not reveal any evidence of a pulmonary embolism or pulmonary infiltrates. There was questionable pulmonary congestion on the CTA chest. 01/19 Vitals similar to yesterday, appears to be a resting more comfortably today. 1 more dose of Lasix 60 mg IV today. Patient is likely near his baseline. CTA chest was negative for pulmonary embolism, there was reticular abnormality and mild honeycombing possibly secondary to pulmonary fibrosis, peribronchial thickening was felt to be due to edema versus bronchitis. Patient recently had a transthoracic echocardiogram, 11/01/2021 which showed an LVEF of 60 to 65%, normal right ventricular size and function, mild to moderate aortic sclerosis with mild stenosis.The automotive technician was unable to actually access left ventricular diastolic function due to indeterminant parameters. 01/20 Respiratory status stable. Patient developed A. fib with RVR overnight, started Lopressor IV as needed. Started Lopressor 50 mg p.o. twice daily, discontinued Toprol. Reduced Seroquel dose to 100 mg at bedtime for prolonged QT interval on EKG. Discussed atrial fibrillation of the patient's son, Sheldon, who decided against anticoagulation. They have a family member who had a brain bleed while on anticoagulation for atrial fibrillation. Placed a follow-up referral request for Dr. Will who is managing the patient's Lewy body dementia and reportedly Seroquel. Potential discharge tomorrow. Physical exam Head: Atraumatic, normal inspection. Eyes: normal appearance, no scleral icterus. Neck: full ROM Respiratory: Nasal cannula oxygen 3.5 L/min, no respiratory distress. Cardiovascular: normal rate and rhythm, S1, S2. GI/Abdominal: soft, nontender, no guarding. Extremities: full range of motion, nontender. Neurological: CN II-XII intact, intact motor, intact sensation. Psychiatric: normal mood. Skin: warm, normal color Constitutional Vitals: Vital Signs Temp Pulse Resp BP Pulse Ox O2 Del Method O2 Flow Rate 97.2 F 92 H 18 128/76 95 3 01/20/22 15:05 01/20/22 15:05 01/20/22 15:05 01/20/22 15:05 01/20/22 15:05 01/20/22 15:05 01/20/22 15:05 Period Temp Pulse Resp BP Sys/Gatica Pulse Ox O2 Del Method O2 Flow Rate Last 24 Hr 96.6 F-98.4 F 35-146 14-26 106-156/48-113 90-98 Nasal Cannula- Oxymask, Bubble Humidifier 2.5-4 Intake and Output 01/20/22 01/20/22 01/20/22 05:59 13:59 21:59 Intake Total 480 720 Output Total 350 Balance 480 720 -350 Weight 121.608 kg Patient Weight 01/21/22 05:59 Weight 121.608 kg Intake & Output: Intake & Output 01/20/22 01/20/22 01/20/22 05:59 13:59 21:59 Intake Total 480 720 Output Total 350 Balance 480 720 -350 Weight 121.608 kg Intake: Oral 480 720 Output: Void Amount 350 Other: Meal Breakfast Percent of Meal Consumed 100% Feeding Ability Independent Nourishment/Supplement name ice cream Urine Appearance Clear Urine Color Yellow Urine Odor Normal Stool Size Moderate Stool Color Yellow Stool Consistency Normal for Patient # Voids 1 OBJ DATA Labs CBC & Chem 7: 01/19/22 05:43 01/20/22 05:40 Labs: Abnormal Lab Results 01/20/22 01/19/22 01/19/22 05:40 05:43 05:43 RBC 3.31 L Hgb 10.5 L Hct 31.4 L MCV RDW 15.3 H Immature Gran % (Auto) 2.0 H Lymph % (Auto) Clay % (Auto) Lymph # (Auto) 1.41 L Clay # (Auto) 0.94 H Immature Gran # 0.18 H Absolute Neutrophils D-Dimer Carbon Dioxide BUN 27 H 26 H Creatinine 1.3 H 1.4 H Glucose 133 H 124 H Direct Bilirubin 0.3 H Lactate Dehydrogenase 233 H NT-Pro-B Natriuret Pep Albumin/Globulin Ratio Triglycerides 165 H Procalcitonin 01/18/22 01/18/22 01/18/22 07:43 07:43 05:19 RBC 3.28 L Hgb 10.4 L Hct 31.1 L MCV RDW 14.9 H Immature Gran % (Auto) 0.8 H Lymph % (Auto) 11.2 L Clay % (Auto) Lymph # (Auto) 1.20 L Clay # (Auto) 1.22 H Immature Gran # 0.09 H Absolute Neutrophils 8.12 H D-Dimer 1.61 H Carbon Dioxide BUN Creatinine Glucose Direct Bilirubin Lactate Dehydrogenase NT-Pro-B Natriuret Pep 536.6 H Albumin/Globulin Ratio Triglycerides Procalcitonin 01/18/22 01/18/22 01/18/22 05:18 01:22 01:22 RBC 3.27 L Hgb 10.6 L Hct 33.8 L MCV 103.4 H RDW 16.0 H Immature Gran % (Auto) 1.0 H Lymph % (Auto) Clay % (Auto) 12.6 H Lymph # (Auto) Clay # (Auto) 1.28 H Immature Gran # 0.10 H Absolute Neutrophils D-Dimer Carbon Dioxide 21 L BUN 35 H Creatinine 1.6 H Glucose 145 H Direct Bilirubin 0.4 H Lactate Dehydrogenase 233 H NT-Pro-B Natriuret Pep Albumin/Globulin Ratio 0.9 L Triglycerides Procalcitonin 0.14 H Meds: Medications Acetaminophen (Acetaminophen 325 Mg Tablet) 650 mg PO Q6HP PRN; Protocol PRN Reason: Per Pain Protocol/Fever > 101 Last Admin: 01/19/22 21:00 Dose: 650 mg Albuterol Sulfate (Albuterol Sulfate 2.5 Mg/3 Ml Nebulizer) 2.5 mg NEB Q2HP PRN PRN Reason: Shortness Of Breath Albuterol/Ipratropium (Ipratropium/Albuterol 3 Ml Ampul.Neb) 3 ml NEB Q6HRT [facility] Last Admin: 01/20/22 13:09 Dose: 3 ml Allopurinol (Allopurinol 300 Mg Tablet) 300 mg PO QDAY [facility] Last Admin: 01/20/22 08:15 Dose: 300 mg Aspirin (Aspirin 81 Mg Tab.Chew) 81 mg PO DAILY [facility] Last Admin: 01/20/22 08:13 Dose: 81 mg Atorvastatin Calcium (Atorvastatin 20 Mg Tablet) 20 mg PO QDAY [facility] Last Admin: 01/20/22 08:15 Dose: 20 mg Budesonide (Budesonide 1 Puff Inhaler) 2 puff INH BID [facility] Last Admin: 01/20/22 08:22 Dose: 2 puff Dextrose (Dextrose 50% 50 Ml Vial) 0 ml IV UD PRN PRN Reason: Per Sliding Scale Diagnostic Test (Pha) (Accu-Chek 1 Each Strip) [address] [facility] Last Admin: 01/20/22 11:35 Dose: 1 each Docusate Sodium (Docusate Sodium 100 Mg Capsule) 100 mg PO BID [facility] Last Admin: 01/20/22 08:14 Dose: 100 mg Donepezil HCl (Donepezil 10 Mg Tablet) 5 mg PO QDAY [facility] Last Admin: 01/20/22 08:14 Dose: 5 mg Duloxetine HCl (Duloxetine 30 Mg Capsule) 30 mg PO QDAY [facility] Last Admin: 01/20/22 08:14 Dose: 30 mg Famotidine (Famotidine 20 Mg Tablet) 20 mg PO QHS [facility] Last Admin: 01/19/22 20:34 Dose: 20 mg Glucose (Dextrose 31 Gm Oral.Susp) 15 gm PO PRN PRN PRN Reason: Hypoglycemia Guaifenesin (Guaifenesin 600 Mg Tab.Sr.12h) 600 mg PO TID [facility] Last Admin: 01/20/22 15:00 Dose: 600 mg Heparin Sodium (Porcine) (Heparin 5,000 Unit/Ml Vial) 5,000 unit SQ Q12 [facility] Last Admin: 01/20/22 08:13 Dose: 5,000 unit Insulin Human Lispro (Insulin Lispro 1 Unit/0.01 Ml Unit) 0 unit SQ [facility]; Protocol Last Admin: 01/20/22 11:43 Dose: 1 units Loratadine (Loratadine 10 Mg Tablet) 10 mg PO QDAY [facility] Last Admin: 01/20/22 08:14 Dose: 10 mg Metoprolol Tartrate (Metoprolol Tartrate 5 Mg/5 Ml Vial) 5 mg IV Q4HP PRN PRN Reason: Tachyarrhythmias Last Admin: 01/20/22 14:00 Dose: 5 mg Metoprolol Tartrate (Metoprolol Tartrate 50 Mg Tablet) 50 mg PO BID [facility] Ondansetron HCl (Ondansetron 4 Mg/2 Ml Vial) 4 mg IV Q6HP PRN PRN Reason: Nausea And Vomiting Nuplazid 34 Mg (Capsule) 1 dose PO QDAY [facility] Last Admin: 01/20/22 08:19 Dose: Not Given Polyethylene Glycol (Polyethylene Glycol 3350 17 Gm Packet) 17 gm PO HSP PRN PRN Reason: Constipation Quetiapine Fumarate (Quetiapine 100 Mg Tablet) 100 mg PO HS [facility] Senna (Sennosides 1 Tablet) 2 tab PO HS [facility] Last Admin: 01/19/22 19:04 Dose: Not Given Sodium Chloride (0.9 % Sodium Chloride 10 Ml Syringe) 10 ml IV Q8 [facility] Last Admin: 01/20/22 14:42 Dose: 10 ml A/P Narrative A/P Narrative: Assessment: 76 year old male with a history of oxygen dependent COPD, HTN, HLD, DM II, CKD III, GERD, JET, dementia who lives in assisted living admitted for dyspnea and cough possibly secondary to mild CHF. #Cough and dyspnea of uncertain etiology, improved after some diuresis #COPD with oxygen dependence #Atrial fibrillation #Prolonged QT interval #Type 2 diabetes mellitus #Hypertension #Hyperlipidemia #GERD #Valadez's esophagus #Lewy body dementia #JET #Polypharmacy Plan -Start Lopressor 50 mg p.o. twice daily for rate control, discontinue Toprol. -The patient's power of conference reservationist, Sheldon, decided against starting anticoagulation for atrial fibrillation. -Reduced Seroquel dose to 100 mg at bedtime for prolonged QT interval. -Humalog SSI-low dose. -Oxygen supplementation. -Lasix 40 mg p.o. daily. -Recent echocardiogram showed normal LVEF, mild mitral regurgitation, trace tricuspid regurgitation, mild aortic stenosis. -Adding losartan for normal blood pressures. -Holding home pioglitazone, it may contribute to congestive heart failure. -Reduced dose Seroquel. -Continue home allopurinol, aspirin, atorvastatin, Aricept, Cymbalta, Pepcid, Mucinex, loratadine, Nuplazid. -PT consult. -Consistent carbohydrate diet. -night monitor -DVT ppx: Heparin SQ -Disposition: Back to assisted living, likely tomorrow. Probably will not resume pioglitazone as that may contribute to congestive heart failure symptoms. Follow-up with neurology for Seroquel dosing, Lewy body dementia. Time Spent With Patient Time: Total time spent is greater than 50% in coordination of care (as documented) at patient's floor/unit and/or counseling patient: QUALITY VTE Deep Vein Thrombosis/Pulmonary Embolism Present on Admission: No
--- NOTE | 2022-01-20 18:34 | EKG ---
[facility] Test Date: 2022-01-19 Pat Name: Cliff Denton Department: [facility] Room: 125 Gender: Male Lgsw: : 1945 Requested By: Cj Erwin Order Number: [id number] Reading MD: Bear Waite Measurements Intervals Harrison Rate: 122 P: ID: QRS: 28 QRSD: 105 T: 33 QT: 355 QTc: 506 Interpretive Statements Atrial fibrillation Abnormal R-wave progression, early transition Borderline repol abnormality, diffuse leads Prolonged QT interval Electronically Signed On 01-20-2022 18:34:08 PDT by Bear Waite /store/[id number]
[2022-01-20] MEDS: SENNOSIDES 1 TABLET PO SCH (20:42)
[2022-01-20] MEDS: FAMOTIDINE 20 MG TABLET PO SCH (20:42)
[2022-01-20] MEDS: QUEtiapine 100 MG TABLET PO SCH (20:42)
[2022-01-21] MEDS: IPRATROPIUM/ALBUTEROL 3 ML AMPUL.NEB NEB SCH ×4 (00:35→19:17)
[2022-01-21] MEDS: 0.9 % SODIUM CHLORIDE 10 ML SYRINGE IV SCH ×3 (05:10→20:16)
[2022-01-21 07:15] LABS: Blood Urea Nitrogen 25 mg/dL (8-23); Calcium 9.4 mg/dL (8.6-10.4); Carbon Dioxide 25 mmol/L (22-30); Chloride 97 mmol/L (96-108); Glomerular Filtration Rate 57; Glucose 138 mg/dL (70-105)
--- NOTE | 2022-01-21 07:44 | Discharge Summary ---
Discharge Provider Provider IMPORTANT FOLLOW-UP INFORMATION FOR PCP: Patient information: Note initiated : 01/21/22 at 7:41 am Service Date, if different from initiated Date: [] Patient: Cliff Denton 76 y/o M admitted on 01/18/22 for Pneumonia. Chief Complaint: [] Date of admission: 01/18/22 00:37 Discharge date: 01/21/22 Primary care physician: John Herndon DO Consults: 01/17/22 22:47 Consult to Physician [CONS] Routine Comment: Consulting Provider: Cj Erwin Reason For Exam: Physician to Consult COURSE Hospital Course Hospital course: Mr. Denton is a 76 year old male who presented to [facility] emergency department for a cough and shortness of breath. Patient does have an extensive medical history that includes oxygen dependent COPD, hypertension, hyperlipidemia, type 2 diabetes mellitus, chronic kidney disease stage III, GERD, obstructive sleep apnea. Provider at the emergency department felt the patient had pneumonia and started the patient on ceftriaxone. At [facility], the patient was afebrile, no leukocytosis, procalcitonin only mildly elevated, a CTA chest did not reveal any evidence of a pulmonary embolism or pulmonary infiltrates. There was questionable pulmonary congestion on the CTA chest. 01/19 Vitals similar to yesterday, appears to be a resting more comfortably today. 1 more dose of Lasix 60 mg IV today. Patient is likely near his baseline. CTA chest was negative for pulmonary embolism, there was reticular abnormality and mild honeycombing possibly secondary to pulmonary fibrosis, peribronchial thickening was felt to be due to edema versus bronchitis. Patient recently had a transthoracic echocardiogram, 11/01/2021 which showed an LVEF of 60 to 65%, normal right ventricular size and function, mild to moderate aortic sclerosis with mild stenosis.The ase certified technician was unable to actually access left ventricular diastolic function due to indeterminant parameters. 01/20 Respiratory status stable. Patient developed A. fib with RVR overnight, started Lopressor IV as needed. Started Lopressor 50 mg p.o. twice daily, discontinued Toprol. Reduced Seroquel dose to 100 mg at bedtime for prolonged QT interval on EKG. Discussed atrial fibrillation of the patient's son, Sheldon, who decided against anticoagulation. They have a family member who had a brain bleed while on anticoagulation for atrial fibrillation. Placed a follow-up referral request for Dr. Will who is managing the patient's Lewy body dementia and reportedly Seroquel. Potential discharge tomorrow. 01/21 Discharge back to a assisted living, did not resume pioglitazone at discharge due to propensity to cause edema. Started Jardiance and continued oral Lasix. Transition to Lopressor for A. fib rate control, discontinued Toprol. Patient's son and medical decision maker did not want the patient to be started on anticoagulation. Decreased Seroquel to 100 mg at bedtime due to QT prolongation on high-dose Seroquel at admission. Follow-up with neurology for further management of Seroquel. Follow-up with PCP after discharge. Physical exam Head: Atraumatic, normal inspection. Eyes: normal appearance, no scleral icterus. Neck: full ROM Respiratory: Nasal cannula oxygen 3 L/min, no respiratory distress. Cardiovascular: normal rate and rhythm, S1, S2. GI/Abdominal: soft, nontender, no guarding. Extremities: full range of motion, nontender. Neurological: CN II-XII intact, intact motor, intact sensation. Psychiatric: normal mood. Skin: warm, normal color Discharge diagnosis: Dyspnea possibly secondary to a congestive heart failure Secondary discharge diagnosis: Type 2 diabetes mellitus Time Spent with Patient Time attestation: Total time spent providing and/or coordinating discharge services: Time spent: Greater than 30 minutes EXAM Constitutional Vitals: Temp Pulse Resp BP Pulse Ox O2 Del Method O2 Flow Rate 96.6 F L 100 H 16 133/83 95 3 01/21/22 07:12 01/21/22 07:12 01/21/22 07:12 01/21/22 07:12 01/21/22 07:12 01/21/22 07:12 01/21/22 07:12 Discharge Data Data Completed and Pending Labs on day of discharge: Labs from last 24 hours 01/21/22 05:31 Sodium 133 Potassium 4.0 Chloride 97 Carbon Dioxide 25 Anion Gap 11.0 BUN 25 H Creatinine 1.2 GFR Calculation 57 Glucose 138 H Calcium 9.4 Discharge Plan Patient/Caregiver Discharge Instructions Activity: increase activity as tolerated Diet: Consistent Carbohydrate Prescriptions: New furosemide 40 mg tablet 40 mg PO DAILY Qty: 60 4RF metoprolol tartrate 50 mg Tablet 75 mg PO BID Qty: 90 4RF quetiapine 100 mg Tablet 100 mg PO HS Qty: 30 4RF Jardiance 10 mg tablet 10 mg PO QAM Qty: 30 4RF Continued Breztri Aerosphere 160-9-4.8 mcg/actuation HFA aerosol inhaler 2 inh inhalation BID Qty: 10.7 0RF allopurinol 300 mg tablet 300 mg PO QDAY aspirin 81 mg tablet,delayed release (DR/EC) 81 mg PO QDAY duloxetine 30 mg capsule,delayed release(DR/EC) 30 mg PO QDAY loratadine 10 mg tablet 10 mg PO QDAY guaifenesin [Mucus Relief ER] 600 mg tablet extended release 12hr 600 mg PO TID rosuvastatin 10 mg tablet 10 mg PO QDAY albuterol sulfate 90 mcg/actuation HFA aerosol inhaler 2 puff inhalation Q6H PRN (Reason: shortness of breath or wheezing) Qty: 8.5 0RF donepezil 5 mg tablet 5 mg PO QDAY famotidine 20 mg tablet 20 mg PO QHS magnesium hydroxide 15 ml PO DAILY PRN (Reason: Constipation) polyethylene glycol 3350 [Miralax] 17 gram/dose powder 4 g PO QHS PRN (Reason: Constipation) hydrocortisone 1 % cream 1 applic topical PRN PRN (Reason: Rash) Nuplazid 34 mg 34 mg PO QDAY Discontinued losartan 100 mg tablet 100 mg PO QDAY metoprolol succinate 100 mg tablet extended release 24 hr 100 mg PO QDAY pioglitazone 15 mg tablet 15 mg PO QDAY quetiapine 300 mg tablet 300 mg PO QHS Follow Up Plan Follow up with: Kalie Michael MD [Physician] - (Review dose of Seroquel, reduced during hospitalization because of prolonged QT interval. ) John Herndon DO [Primary Care Provider] - Patient Disposition: Home, Self-Care Overall status at discharge: patient is progressing back to baseline Discharge Orders: Discharge Order (Routine); Ordered 01/21/22 Ordered By: Cj CASTILLO VTE Deep Vein Thrombosis/Pulmonary Embolism Present on Admission: No
[2022-01-21] MEDS: INSULIN LISPRO 1 UNIT/0.01 ML UNIT SQ SCH ×5 (07:46→20:21)
--- NOTE | 2022-01-21 08:08 | Internal Med Progress Note ---
SUBJECTIVE Subjective Patient information: Note initiated : 01/21/22 at 8:06 am Service Date, if different from initiated Date: [] Patient: Cliff Denton 76 y/o M admitted on 01/18/22 for Pneumonia. Chief Complaint: [] Interval history: Mr. Denton is a 76 year old male who presented to [facility] emergency department for a cough and shortness of breath. Patient does have an extensive medical history that includes oxygen dependent COPD, hypertension, hyperlipidemia, type 2 diabetes mellitus, chronic kidney dis ease stage III, GERD, obstructive sleep apnea. Provider at the emergency department felt the patient had pneumonia and started the patient on ceftriaxone. At [facility], the patient was afebrile, no leukocytosis, procalcitonin only mildly elevated, a CTA chest did not reveal any evidence of a pulmonary embolism or pulmonary infiltrates. There was questionable pulmonary congestion on the CTA chest. 01/19 Vitals similar to yesterday, appears to be a resting more comfortably today. 1 more dose of Lasix 60 mg IV today. Patient is likely near his baseline. CTA chest was negative for pulmonary embolism, there was reticular abnormality and mild honeycombing possibly secondary to pulmonary fibrosis, peribronchial thickening was felt to be due to edema versus bronchitis. Patient recently had a transthoracic echocardiogram, 11/01/2021 which showed an LVEF of 60 to 65%, normal right ventricular size and function, mild to moderate aortic sclerosis with mild stenosis.The phone technician was unable to actually access left ventricular diastolic function due to indeterminant parameters. 01/20 Respiratory status stable. Patient developed A. fib with RVR overnight, started Lopressor IV as needed. Started Lopressor 50 mg p.o. twice daily, discontinued Toprol. Reduced Seroquel dose to 100 mg at bedtime for prolonged QT interval on EKG. Discussed atrial fibrillation of the patient's son, Sheldon, who decided against anticoagulation. They have a family member who had a brain bleed while on anticoagulation for atrial fibrillation. Placed a follow-up referral request for Dr. Will who is managing the patient's Lewy body dementia and reportedly Seroquel. Potential discharge tomorrow. 01/21 Patient continues to have poorly rate control for atrial fibrillation, increase Lopressor to 75 mg twice daily. Cardiology consulted for assistance with rate control, canceled discharge to assisted living facility. Physical exam Head: Atraumatic, normal inspection. Eyes: normal appearance, no scleral icterus. Neck: full ROM Respiratory: Nasal cannula oxygen 3 L/min, no respiratory distress. Cardiovascular: normal rate and rhythm, S1, S2. GI/Abdominal: soft, nontender, no guarding. Extremities: full range of motion, nontender. Neurological: CN II-XII intact, intact motor, intact sensation. Psychiatric: normal mood. Skin: warm, normal color Constitutional Vitals: Vital Signs Temp Pulse Resp BP Pulse Ox O2 Del Method O2 Flow Rate 96.6 F L 100 H 16 133/83 95 3 01/21/22 07:12 01/21/22 07:12 01/21/22 07:12 01/21/22 07:12 01/21/22 07:12 01/21/22 07:12 01/21/22 07:12 Period Temp Pulse Resp BP Sys/Gatica Pulse Ox O2 Del Method O2 Flow Rate Last 24 Hr 96.6 F-98.4 F 35-146 15-26 109-145/58-113 90-98 Nasal Cannula- Oxymask 2.5-3.5 Intake and Output 01/20/22 01/21/22 01/21/22 21:59 05:59 13:59 Intake Total 480 400 250 Output Total 350 1150 Balance 130 -750 250 Weight 122.059 kg Intake & Output: Intake & Output 01/20/22 01/21/22 01/21/22 21:59 05:59 13:59 Intake Total 480 400 250 Output Total 350 1150 Balance 130 -750 250 Weight 122.059 kg Intake: Oral 480 250 GI Tube Flush 400 Output: Void Amount 350 1150 Other: Meal Dinner Percent of Meal Consumed 75% Feeding Ability Independent Urine Appearance Clear Clear Urine Color Yellow Yellow Urine Odor Normal OBJ DATA Labs CBC & Chem 7: 01/19/22 05:43 01/21/22 05:31 Labs: Abnormal Lab Results 01/21/22 01/20/22 01/19/22 05:31 05:40 05:43 RBC Hgb Hct RDW Immature Gran % (Auto) Lymph # (Auto) [place] # (Auto) Immature Gran # D-Dimer BUN 25 H 27 H 26 H Creatinine 1.3 H 1.4 H Glucose 138 H 133 H 124 H Direct Bilirubin 0.3 H Lactate Dehydrogenase 233 H NT-Pro-B Natriuret Pep Triglycerides 165 H 01/19/22 01/18/22 01/18/22 05:43 07:43 07:43 RBC 3.31 L Hgb 10.5 L Hct 31.4 L RDW 15.3 H Immature Gran % (Auto) 2.0 H Lymph # (Auto) 1.41 L [place] # (Auto) 0.94 H Immature Gran # 0.18 H D-Dimer 1.61 H BUN Creatinine Glucose Direct Bilirubin Lactate Dehydrogenase NT-Pro-B Natriuret Pep 536.6 H Triglycerides Meds: Medications Acetaminophen (Acetaminophen 325 Mg Tablet) 650 mg PO Q6HP PRN; Protocol PRN Reason: Per Pain Protocol/Fever > 101 Last Admin: 01/19/22 21:00 Dose: 650 mg Albuterol Sulfate (Albuterol Sulfate 2.5 Mg/3 Ml Nebulizer) 2.5 mg NEB Q2HP PRN PRN Reason: Shortness Of Breath Albuterol/Ipratropium (Ipratropium/Albuterol 3 Ml Ampul.Neb) 3 ml NEB Q6HRT [facility] Last Admin: 01/21/22 00:35 Dose: 3 ml Allopurinol (Allopurinol 300 Mg Tablet) 300 mg PO QDAY [facility] Last Admin: 01/20/22 08:15 Dose: 300 mg Aspirin (Aspirin 81 Mg Tab.Chew) 81 mg PO DAILY [facility] Last Admin: 01/20/22 08:13 Dose: 81 mg Atorvastatin Calcium (Atorvastatin 20 Mg Tablet) 20 mg PO QDAY [facility] Last Admin: 01/20/22 08:15 Dose: 20 mg Budesonide (Budesonide 1 Puff Inhaler) 2 puff INH BID [facility] Last Admin: 01/20/22 20:44 Dose: 2 puff Dextrose (Dextrose 50% 50 Ml Vial) 0 ml IV UD PRN PRN Reason: Per Sliding Scale Diagnostic Test (Pha) (Accu-Chek 1 Each Strip) 1 each FS ACHS [facility] Last Admin: 01/21/22 07:46 Dose: 1 each Docusate Sodium (Docusate Sodium 100 Mg Capsule) 100 mg PO BID [facility] Last Admin: 01/20/22 20:42 Dose: 100 mg Donepezil HCl (Donepezil 10 Mg Tablet) 5 mg PO QDAY [facility] Last Admin: 01/20/22 08:14 Dose: 5 mg Duloxetine HCl (Duloxetine 30 Mg Capsule) 30 mg PO QDAY [facility] Last Admin: 01/20/22 08:14 Dose: 30 mg Famotidine (Famotidine 20 Mg Tablet) 20 mg PO QHS [facility] Last Admin: 01/20/22 20:42 Dose: 20 mg Furosemide (Furosemide 40 Mg Tablet) 40 mg PO DAILY [facility] Glucose (Dextrose 31 Gm Oral.Susp) 15 gm PO PRN PRN PRN Reason: Hypoglycemia Guaifenesin (Guaifenesin 600 Mg Tab.Sr.12h) 600 mg PO TID [facility] Last Admin: 01/20/22 20:42 Dose: 600 mg Heparin Sodium (Porcine) (Heparin 5,000 Unit/Ml Vial) 5,000 unit SQ Q12 [facility] Last Admin: 01/20/22 20:40 Dose: 5,000 unit Insulin Human Lispro (Insulin Lispro 1 Unit/0.01 Ml Unit) 0 unit SQ ACHS [facility]; Protocol Last Admin: 01/21/22 07:46 Dose: Not Given Loratadine (Loratadine 10 Mg Tablet) 10 mg PO QDAY [facility] Last Admin: 01/20/22 08:14 Dose: 10 mg Metoprolol Tartrate (Metoprolol Tartrate 5 Mg/5 Ml Vial) 5 mg IV Q4HP PRN PRN Reason: Tachyarrhythmias Last Admin: 01/20/22 14:00 Dose: 5 mg Metoprolol Tartrate (Metoprolol Tartrate 50 Mg Tablet) 75 mg PO BID [facility] Ondansetron HCl (Ondansetron 4 Mg/2 Ml Vial) 4 mg IV Q6HP PRN PRN Reason: Nausea And Vomiting Nuplazid 34 Mg (Capsule) 1 dose PO QDAY [facility] Last Admin: 01/20/22 08:19 Dose: Not Given Polyethylene Glycol (Polyethylene Glycol 3350 17 Gm Packet) 17 gm PO HSP PRN PRN Reason: Constipation Quetiapine Fumarate (Quetiapine 100 Mg Tablet) 100 mg PO [facility] Last Admin: 01/20/22 20:42 Dose: 100 mg Senna (Sennosides 1 Tablet) 2 tab PO [facility] Last Admin: 01/20/22 20:42 Dose: 2 tab Sodium Chloride (0.9 % Sodium Chloride 10 Ml Syringe) 10 ml IV Q8 [facility] Last Admin: 01/21/22 05:10 Dose: 10 ml A/P Narrative A/P Narrative: Assessment: 76 year old male with a history of oxygen dependent COPD, HTN, HLD, DM II, CKD III, GERD, JET, dementia who lives in assisted living admitted for dyspnea and cough possibly secondary to mild CHF. #Resolving cough and dyspnea of possibly secondary to mild CHF #COPD with oxygen dependence #Atrial fibrillation with RVR #Prolonged QT interval #Type 2 diabetes mellitus #Hypertension #Hyperlipidemia #GERD #Valadez's esophagus #Lewy body dementia #JET #Polypharmacy Plan -Increase Lopressor to 75 mg p.o. twice daily for rate control, previously the patient was on Toprol. -Cardiology consulted for A. fib rate control management. -The patient's power of district attorney, Sheldon, decided against starting anticoagulation for atrial fibrillation. -Continue reduced Seroquel dose to 100 mg at bedtime for prolonged QT interval. -Repeat EKG to follow QT interval following reduction in Seroquel dose. -Humalog SSI-low dose. -Oxygen supplementation. -Lasix 40 mg p.o. daily. -Recent echocardiogram showed normal LVEF, mild mitral regurgitation, trace tricuspid regurgitation, mild aortic stenosis. -Holding home losartan for for now while increasing beta-philipp dose. -Holding home pioglitazone, this may contribute to congestive heart failure. -Continue reduced dose Seroquel. -Continue home allopurinol, aspirin, atorvastatin, Aricept, Cymbalta, Pepcid, Mucinex, loratadine, Nuplazid. -PT consult. -Consistent carbohydrate diet. 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 Probably will not resume pioglitazone as that may contribute to congestive heart failure symptoms. Jardiance would be a good alternative for this patient. Follow-up with neurology for Seroquel dosing, Lewy body dementia. Time Spent With Patient Time: Total time spent is greater than 50% in coordination of care (as documented) at patient's floor/unit and/or counseling patient: QUALITY VTE Deep Vein Thrombosis/Pulmonary Embolism Present on Admission: No
[2022-01-21] MEDS: DONEPEZIL 10 MG TABLET PO SCH (08:39)
[2022-01-21] MEDS: LORATADINE 10 MG TABLET PO SCH (08:40)
[2022-01-21] MEDS: DOCUSATE SODIUM 100 MG CAPSULE PO SCH ×2 (08:40→20:12)
[2022-01-21] MEDS: BUDESONIDE 1 PUFF INHALER INH SCH ×2 (08:40→20:14)
[2022-01-21] MEDS: ASPIRIN 81 MG TAB.CHEW PO SCH (08:40)
[2022-01-21] MEDS: DULoxetine 30 MG CAPSULE PO SCH (08:41)
[2022-01-21] MEDS: HEPARIN 5,000 UNIT/ML VIAL SQ SCH ×2 (08:41→20:15)
[2022-01-21] MEDS: guaiFENesin 600 MG TAB.SR.12H PO SCH ×3 (08:42→20:14)
[2022-01-21] MEDS: FUROSEMIDE 40 MG TABLET PO SCH (08:42)
[2022-01-21] MEDS: ATORVASTATIN 20 MG TABLET PO SCH (08:42)
[2022-01-21] MEDS: NUPLAZID 34 MG CAPSULE PO SCH (08:43)
[2022-01-21] MEDS: ALLOPURINOL 300 MG TABLET PO SCH (08:43)
[2022-01-21] MEDS ORDERED: METOPROLOL TARTRATE 50 MG TABLET PO SCH (09:00)
--- NOTE | 2022-01-21 10:20 | Cardiology Consult Note ---
HPI History of Present Illness Patient information: Note initiated : 01/21/22 at 10:06 am Service Date, if different from initiated Date: [] Patient: Cliff Denton 76 y/o M admitted on 01/18/22 for Pneumonia. Chief Complaint: [] Chief complaint: Afib with RVR History of present illness: Mr. Denton is a 76 year old Man tihe EF 60-65%, Mild to moderate aortic valve stenosis, and nonobstructive CAD. He was recently admitted to [facility] with a possible pneumonia and has developed afib with RVR. Anticoagulation was declined by the POA. He has no symptoms of atrial fibrillation. He is currently on metoprolol tartrate 75 twice daily for rate control but continues to have heart rates around 130 bpm. Blood pressure has been normotensive to mildly elevated Constitutional Constitutional: Present as per HPI PFSH PFSH All Active Problems Shortness of breath (Chronic) Gait instability (Chronic) GERD (gastroesophageal reflux disease) (Chronic) Nasal congestion (Chronic) Constipation (Chronic) Carotid bruit (Chronic) Bilateral carotid artery stenosis (Chronic) Cardiac murmur, unspecified (Chronic) Stable angina (Chronic) Blurry vision (Chronic) Type 2 diabetes mellitus with hyperglycemia (Chronic) Leg swelling (Chronic) Fatigue (Chronic) Chest discomfort (Chronic) Hypoxemia (Chronic) Mixed insomnia (Chronic) Benign prostatic hyperplasia (Chronic) Barretts esophagus (Chronic) Allergic rhinitis (Chronic) Cerebrovascular disease (Chronic) Hypertensive disorder (Chronic) Obstructive sleep apnea (Chronic) Dementia (Chronic) Gout (Chronic) Hyperlipidemia (Chronic) COPD (chronic obstructive pulmonary disease) (Chronic) Medical History Allergic rhinitis Barretts esophagus Benign prostatic hyperplasia Bilateral carotid artery stenosis Blurry vision Cardiac murmur, unspecified Carotid bruit Cerebrovascular disease Chest discomfort Constipation COPD (chronic obstructive pulmonary disease) Dementia with lewy bodies Fatigue Gait instability GERD (gastroesophageal reflux disease) Gout Hyperlipidemia Hypertensive disorder Hypoxemia Leg swelling Mixed insomnia Nasal congestion Obstructive sleep apnea Shortness of breath Stable angina Type 2 diabetes mellitus with hyperglycemia Surgical History History of hernia repair (~1996) History of lumpectomy (~2013) History of surgery (~2002) "Stoma cap" Family History Mother Chronic obstructive lung disease Arthritis Father Neoplasm of brain Social History marital status: occupational status: retired 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 smoking status: Former smoker quit date: 04/14/07 pack-years: 52 smoking status start date: 04/14/1954 smoking status stop date: 04/14/07 alcohol intake frequency: holiday/special occasion only substance use type: does not use MEDS/ALLERGIES Home Medications and Allergies Home Medications Medication Instructions Recorded Confirmed Type allopurinol 300 mg tablet 300 mg PO QDAY 07/03/20 01/18/22 History aspirin 81 mg tablet,delayed 81 mg PO QDAY 07/03/20 01/18/22 History release duloxetine 30 mg capsule,delayed 30 mg PO QDAY 07/03/20 01/18/22 History release guaifenesin 600 mg tablet, 600 mg PO TID 07/03/20 01/18/22 History extended release 12 hr (Mucus Relief ER) loratadine 10 mg tablet 10 mg PO QDAY 07/03/20 01/18/22 History rosuvastatin 10 mg tablet 10 mg PO QDAY 07/03/20 01/18/22 History donepezil 5 mg tablet 5 mg PO QDAY 08/10/20 01/18/22 History famotidine 20 mg tablet 20 mg PO QHS 08/10/20 01/18/22 History magnesium hydroxide [Milk of 15 ml PO DAILY PRN Constipation 08/10/20 01/18/22 History Magnesia] albuterol sulfate 90 mcg/actuation 2 puff inhalation Q6H PRN 09/27/20 01/18/22 Rx aerosol inhaler shortness of breath or wheezing #8.5 grams budesonide 160 mcg-glycopyr 9 2 inh inhalation BID #10.7 grams 06/27/21 01/18/22 Rx mcg-formot 4.8 mcg/actuation HFA inhaler (Breztri Aerosphere) hydrocortisone 1 % topical cream 1 applic topical PRN PRN Rash 10/24/21 01/18/22 History polyethylene glycol 3350 17 4 g PO QHS PRN Constipation 10/24/21 01/18/22 History gram/dose oral powder (Miralax) Nuplazid 34 mg PO QDAY depression 01/18/22 01/18/22 History empagliflozin 10 mg tablet 10 mg PO QAM #30 tabs 01/21/22 Rx (Jardiance) furosemide 40 mg tablet 40 mg PO DAILY #60 tabs 01/21/22 Rx metoprolol tartrate 50 mg tablet 75 mg PO BID #90 tabs 01/21/22 Rx quetiapine 100 mg tablet 100 mg PO HS #30 tabs 01/21/22 Rx Allergies Allergy/AdvReac Type Severity Reaction Status Date / Time No Known Drug Allergies Allergy Verified 10/24/21 10:30 Physical Examination Vital Signs Vital Signs: Temp Pulse Resp BP Pulse Ox O2 Del Method O2 Flow Rate 96.6 F L 100 H 16 133/83 93 3 01/21/22 07:12 01/21/22 08:33 01/21/22 08:33 01/21/22 07:12 01/21/22 08:33 01/21/22 08:33 01/21/22 08:33 Physical Examination General: Present Appears Well and No Apparent Distress HEENT: Present EOMI Neck: Present Supple Neck and No JVD/HJR Cardiac: Present Irregularly Regular, Audible Murmur and Tachycardia Lungs: Present Normal Exam Neuro: Present No Lateralizing Findings Abdomen: Present Soft Skin: Present Clear Extremities: Present No Clubbing and No Edema Results Labs and Meds Result diagrams: 01/19/22 05:43 01/21/22 05:31 Lab results: Comprehensive Metabolic Panel 01/21/22 Range/Units 05:31 Sodium 133 (133-145) mmol/L Potassium 4.0 (3.3-5.1) mmol/L Chloride 97 (96-108) mmol/L Carbon Dioxide 25 (22-30) mmol/L BUN 25 H (8-23) mg/dL Creatinine 1.2 (0.7-1.2) mg/dL Glucose 138 H (70-105) mg/dL Calcium 9.4 (8.6-10.4) mg/dL Current Medications Generic Name Dose Route Start Last Admin Trade Name Freq PRN Reason Stop Dose Admin Acetaminophen 650 mg 01/18/22 00:53 01/19/22 21:00 Acetaminophen 325 Mg Tablet PO 650 mg Q6HP PRN Administration Per Pain Protocol/Fever > 101 Protocol Albuterol Sulfate 2.5 mg 01/18/22 00:53 Albuterol Sulfate 2.5 Mg/3 Ml Nebulizer NEB Q2HP PRN Shortness Of Breath Albuterol/Ipratropium 3 ml 01/18/22 01:00 01/21/22 08:33 Ipratropium/Albuterol 3 Ml Ampul.Neb NEB 3 ml Q6HRT RUBY Administration Allopurinol 300 mg 01/19/22 09:00 01/21/22 08:43 Allopurinol 300 Mg Tablet PO 300 mg QDAY RUBY Administration Aspirin 81 mg 01/19/22 09:00 01/21/22 08:40 Aspirin 81 Mg Tab.Chew PO 81 mg DAILY RUBY Administration Atorvastatin Calcium 20 mg 01/19/22 09:00 01/21/22 08:42 Atorvastatin 20 Mg Tablet PO 20 mg QDAY RUBY Administration Budesonide 2 puff 01/18/22 21:00 01/21/22 08:40 Budesonide 1 Puff Inhaler INH 2 puff BID RUBY Administration Dextrose 0 ml 01/18/22 00:53 Dextrose 50% 50 Ml Vial IV UD PRN Per Sliding Scale Diagnostic Test (Pha) 1 each 01/18/22 07:30 01/21/22 07:46 Accu-Chek 1 Each Strip FS 1 each ACHS RUBY Administration Docusate Sodium 100 mg 01/18/22 09:00 01/21/22 08:40 Docusate Sodium 100 Mg Capsule PO 100 mg BID RUBY Administration Donepezil HCl 5 mg 01/19/22 09:00 01/21/22 08:39 Donepezil 10 Mg Tablet PO 5 mg QDAY RUBY Administration Duloxetine HCl 30 mg 01/19/22 09:00 01/21/22 08:41 Duloxetine 30 Mg Capsule PO 30 mg QDAY RUBY Administration Famotidine 20 mg 01/18/22 21:00 01/20/22 20:42 Famotidine 20 Mg Tablet PO 20 mg QHS RUBY Administration Furosemide 40 mg 01/21/22 09:00 01/21/22 08:42 Furosemide 40 Mg Tablet PO 40 mg DAILY RUBY Administration Glucose 15 gm 01/18/22 00:53 Dextrose 31 Gm Oral.Susp PO PRN PRN Hypoglycemia Guaifenesin 600 mg 01/18/22 21:00 01/21/22 08:42 Guaifenesin 600 Mg Tab.Sr.12h PO 600 mg TID RUBY Administration Heparin Sodium (Porcine) 5,000 unit 01/18/22 09:00 01/21/22 08:41 Heparin 5,000 Unit/Ml Vial SQ 5,000 unit Q12 RUBY Administration Insulin Human Lispro 0 unit 01/18/22 07:30 01/21/22 07:46 Insulin Lispro 1 Unit/0.01 Ml Unit SQ [facility] Loratadine 10 mg 01/19/22 09:00 01/21/22 08:40 Loratadine 10 Mg Tablet PO 10 mg QDAY RUBY Administration Metoprolol Tartrate 5 mg 01/19/22 22:40 01/20/22 14:00 Metoprolol Tartrate 5 Mg/5 Ml Vial IV 5 mg Q4HP PRN Administration Tachyarrhythmias Metoprolol Tartrate 75 mg 01/21/22 09:00 01/21/22 08:42 Metoprolol Tartrate 50 Mg Tablet PO 75 mg BID RUBY Administration Ondansetron HCl 4 mg 01/18/22 00:53 Ondansetron 4 Mg/2 Ml Vial IV Q6HP PRN Nausea And Vomiting Nuplazid 34 Mg 1 dose 01/19/22 09:00 01/21/22 08:43 Capsule PO Not Given QDAY RUBY Polyethylene Glycol 17 gm 01/18/22 19:34 Polyethylene Glycol 3350 17 Gm Packet PO HSP PRN Constipation Quetiapine Fumarate 100 mg 01/20/22 21:00 01/20/22 20:42 Quetiapine 100 Mg Tablet PO 100 mg HS [facility] Administration Senna 2 tab 01/18/22 21:00 01/20/22 20:42 Sennosides 1 Tablet PO 2 tab HS [facility] Administration Sodium Chloride 10 ml 01/18/22 06:00 01/21/22 05:10 0.9 % Sodium Chloride 10 Ml Syringe IV 10 ml Q8 RUBY Administration Intake and Output 01/20/22 01/21/22 01/21/22 21:59 05:59 13:59 Intake Total 480 400 250 Output Total 350 1150 Balance 130 -750 250 Intake: Oral 480 250 GI Tube Flush 400 Output: Void Amount 350 1150 Other: Meal Dinner Percent of Meal Consumed 75% Feeding Ability Independent Urine Appearance Clear Clear Urine Color Yellow Yellow Urine Odor Normal Weight 122.059 kg Imaging and Cardiology Imaging Narrative: Narrative: Echo: report reviewed Holter: image reviewed EKG Interpretation EKG shows: atrial fibrillation (Atrial fibrillation with rapid ventricular resp onse. Rate 129. Nonspecific diffuse ST segment changes. Nonspecific IVCD. EKG date January 21, 2022) EKG interpretations EKG EKG shows: atrial fibrillation (Atrial fibrillation with rapid ventricular response. Rate 129. Nonspecific diffuse ST segment changes. Nonspecific IVCD. EKG date January 21, 2022) A/P Narrative A/P Narrative: 1. A. fib with rapid ventricular response. Anticoagulation is recommended but has been declined by the patient's POA. Patient himself has moderate dementia and lives in a care facility. He has no symptoms of atrial fibrillation however rapid ventricular rate present concern for developing rate related cardiomyopathy. Since his blood pressure is normotensive to hypertensive he should tolerate increasing doses of beta-blockers for rate control. 2. Aortic stenosis is mild to moderate at most. This is a very slowly progressive process he had a recent echo. There is no significant concern with this finding may be followed up in 1 to 2 years with repeat echocardiography Plan of Treatment: 1. Ideally patient should be initiated on anticoagulation with either a factor X or factor Xa inhibitor or a vitamin K antagonist with INR goal 2-3. Aspirin is not a substitute for anticoagulation for thromboembolic prophylaxis. I am aware that this discussion has occurred and POA has declined 2. Change dosage form of metoprolol to succinate. Increase dose to 150 mg twice daily. Continue increasing dose and 50 mg increments twice daily until resting heart rate is under 110. Resting heart rate under 110 is considered adequate for rate control. Time Spent With Patient Time: Total time spent is greater than 50% in coordination of care (as documented) at patient's floor/unit and/or counseling patient:
[2022-01-21] MEDS ORDERED: POLYETHYLENE GLYCOL 3350 17 GM PACKET PO PRN (16:57)
[2022-01-21] MEDS ORDERED: MAGNESIUM HYDROXIDE 30 ML ORAL.SUSP PO PRN (16:57)
[2022-01-21] MEDS ORDERED: MINERAL OIL 1 DOSE ENEMA PR ONE (16:57)
[2022-01-21] MEDS ORDERED: LACTULOSE 20 GM/30 ML ORAL.SOL PO PRN (16:57)
[2022-01-21] MEDS: QUEtiapine 100 MG TABLET PO SCH (20:13)
[2022-01-21] MEDS: METOPROLOL SUCCINATE 50 MG TAB.XL.24H PO SCH (20:13)
[2022-01-21] MEDS: FAMOTIDINE 20 MG TABLET PO SCH (20:13)
[2022-01-21] MEDS: SENNOSIDES 1 TABLET PO SCH (20:14)
[2022-01-21] MEDS ORDERED: METOPROLOL SUCCINATE 50 MG TAB.XL.24H PO SCH (21:00)
[2022-01-22] MEDS: IPRATROPIUM/ALBUTEROL 3 ML AMPUL.NEB NEB SCH ×4 (00:25→18:35)
[2022-01-22] MEDS: 0.9 % SODIUM CHLORIDE 10 ML SYRINGE IV SCH ×3 (05:09→21:48)
[2022-01-22] MEDS: INSULIN LISPRO 1 UNIT/0.01 ML UNIT SQ SCH ×4 (07:14→21:48)
[2022-01-22 07:39] LABS: Basophils # (Auto) 0.06 K/mcL (0.00-0.30); Basophils % (Auto) 0.7 % (0.0-2.0); Eosinophils # (Auto) 0.19 K/mcL (0.00-0.70); Eosinophils % (Auto) 2.1 % (0.0-7.0); Hematocrit 34.3 % (40.1-51.0); Hemoglobin 11.6 g/dL (13.7-17.5); Lymphocytes # (Auto) 1.71 K/mcL (1.50-4.80); Lymphocytes % (Auto) 19.1 % (15.5-49.0); Mean Cell Volume 94.8 fL (80.0-100.0); Mean Corpuscular HGB Conc 33.8 g/dL (31.0-36.0); Mean Platelet Volume 8.9 fL (8.8-12.5); Monocytes # (Auto) 0.69 K/mcL (0.10-0.90); Monocytes % (Auto) 7.7 % (1.0-12.0); Neutrophils % (Auto) 67.9 % (38.0-78.0); Platelet Count 373 K/mcL (140-440); RBC 3.62 M/mcL (4.63-6.08); Red Cell Distribution Width 15.2 % (11.5-14.5)
[2022-01-22 07:50] LABS: ALT/SGPT 24 U/L (<40); AST/SGOT 20 U/L (<40); Albumin 3.4 gm/dL (3.2-5.2); Alkaline Phosphatase 98 U/L (39-117); Bilirubin,Total 0.4 mg/dL (0.1-1.0); Blood Urea Nitrogen 22 mg/dL (8-23); Carbon Dioxide 25 mmol/L (22-30); Chloride 94 mmol/L (96-108); Globulin 3.5 gm/dL (2.2-3.7); Glomerular Filtration Rate 57; Glucose 113 mg/dL (70-105)
[2022-01-22 07:51] LABS: Phosphorous 4.1 mg/dL (2.5-4.5)
[2022-01-22] MEDS: HEPARIN 5,000 UNIT/ML VIAL SQ SCH ×2 (09:51→21:47)
[2022-01-22] MEDS: ALLOPURINOL 300 MG TABLET PO SCH (09:52)
[2022-01-22] MEDS: DONEPEZIL 10 MG TABLET PO SCH (09:52)
[2022-01-22] MEDS: METOPROLOL SUCCINATE 50 MG TAB.XL.24H PO SCH ×2 (09:52→21:47)
[2022-01-22] MEDS: guaiFENesin 600 MG TAB.SR.12H PO SCH ×3 (09:52→21:47)
[2022-01-22] MEDS: DULoxetine 30 MG CAPSULE PO SCH (09:53)
[2022-01-22] MEDS: ATORVASTATIN 20 MG TABLET PO SCH (09:53)
[2022-01-22] MEDS: ASPIRIN 81 MG TAB.CHEW PO SCH (09:53)
[2022-01-22] MEDS: BUDESONIDE 1 PUFF INHALER INH SCH ×2 (09:53→21:47)
[2022-01-22] MEDS: DOCUSATE SODIUM 100 MG CAPSULE PO SCH ×2 (09:53→21:48)
[2022-01-22] MEDS: LORATADINE 10 MG TABLET PO SCH (09:53)
[2022-01-22] MEDS: FUROSEMIDE 40 MG TABLET PO SCH (09:53)
[2022-01-22] MEDS: ACETAMINOPHEN 325 MG TABLET PO PRN ×2 (09:53→16:39)
[2022-01-22] MEDS: NUPLAZID 34 MG CAPSULE PO SCH (09:54)
--- NOTE | 2022-01-22 10:09 | Cardiology Progress Note ---
SUBJECTIVE Subjective Patient information: Note initiated : 01/22/22 at 10:08 am Service Date, if different from initiated Date: [] Patient: Cliff Denton 76 y/o M admitted on 01/18/22 for Pneumonia. Chief Complaint: [Atrial fibrillation with rapid ventricular response] Interval history: Heart rate control has improved. He is still having higher than ideal ventricular rates from the atrial fibrillation. Reviewing telemetry rates remain in the 120s sometimes the 1 teens. No significant pauses are identified. He has no symptoms of the atrial fibrillation. POA has declined anticoagulation. Constitutional Vitals: Vital Signs Temp Pulse Resp BP Pulse Ox O2 Del Method O2 Flow Rate 97.7 F 105 H 20 102/58 95 3 01/22/22 07:56 01/22/22 07:56 01/22/22 07:56 01/22/22 07:56 01/22/22 07:56 01/22/22 07:56 01/22/22 07:56 Period Temp Pulse Resp BP Sys/Gatica Pulse Ox O2 Del Method O2 Flow Rate Last 24 Hr 97.1 F-98.6 F 91-120 14-20 102-129/57-107 92-96 Nasal Cannula- Room Air 2-3 Intake and Output 01/21/22 01/22/22 01/22/22 21:59 05:59 13:59 Intake Total 1220 450 Output Total 550 650 Balance 670 -200 Weight 122.039 kg Intake & Output: Intake & Output 01/21/22 01/22/22 01/22/22 21:59 05:59 13:59 Intake Total 1220 450 Output Total 550 650 Balance 670 -200 Weight 122.039 kg Intake: Oral 1220 200 GI Tube Flush 250 Output: Void Amount 550 650 Other: Meal Dinner Percent of Meal Consumed 100% Feeding Ability Independent Urine Appearance Clear Clear Urine Color Yellow Yellow Urine Odor Normal # Voids 1 # Bowel Movements 0 General appearance: average body habitus and cooperative Respiratory Respiratory exam: Present normal respiratory exam Cardiovascular Cardiovascular exam: Present irregular rhythm, systolic murmur and tachycardia A/P Narrative A/P Narrative: Atrial fibrillation with RVR: Rate control is improved but still not optimal. Goal ventricular rate is < 110. There are no johana events on telemetry. No pauses nor asystoles. Recommend increasing metoprolol succinate dose from 150 twice daily to 200 twice daily. Patient may follow with cardiology after discharge in 1 to 2 weeks Plan of Treatment: 1. Ideally patient should be initiated on anticoagulation with either a factor X or factor Xa inhibitor or a vitamin K antagonist with INR goal 2-3. Aspirin is not a substitute for anticoagulation for thromboembolic prophylaxis. I am aware that this discussion has occurred and POA has declined 2. Change dosage form of metoprolol to succinate. Increase dose to 150 mg twice daily. Continue increasing dose and 50 mg increments twice daily until resting heart rate is under 110. Resting heart rate under 110 is considered adequate for rate control. Time Spent With Patient Time: Total time spent is greater than 50% in coordination of care (as documented) at patient's floor/unit and/or counseling patient:
--- NOTE | 2022-01-22 12:33 | EKG ---
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
--- NOTE | 2022-01-22 12:34 | EKG ---
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
--- NOTE | 2022-01-22 14:45 | Internal Med Progress Note ---
SUBJECTIVE Subjective Patient information: Note initiated : 01/22/22 at 2:38 pm Service Date, if different from initiated Date: [] Patient: Cliff Denton 76 y/o M admitted on 01/18/22 for Pneumonia. Chief Complaint: [] Interval history: 01/22: There was no major overnight events. Patient is currently on 2 L/min of supplemental oxygen via nasal cannula. Patient denies any chest pain or palpitation. He denies any shortness of breath cough or wheezing or sputum productions. He denies any fever chills or diaphoresis. He denies any disco mfort or pain. As per Dr. Waite chef teacher, the goal of the rate control would be resting heart rate of less than or equal to 110 bpm, and patient is currently on metoprolol extended release 150 mg PO BID. I had a discussions with the family at the bedside regarding anticoagulations and the current decisions would be no anticoagulation due to increased fall risk. Has reached clinical stability and pending SNF placement. Constitutional Vitals: Vital Signs Temp Pulse Resp BP Pulse Ox O2 Del Method O2 Flow Rate 36.0 C L 108 H 16 109/57 97 2 01/22/22 12:00 01/22/22 12:57 01/22/22 12:57 01/22/22 12:00 01/22/22 12:57 01/22/22 12:57 01/22/22 12:57 Period Temp Pulse Resp BP Sys/Gatica Pulse Ox O2 Del Method O2 Flow Rate Last 24 Hr 36.0 C-37.0 C 93-120 15-20 102-129/57-72 95-97 Nasal Cannula- Room Air 2-3 Intake and Output 01/22/22 01/22/22 01/22/22 05:59 13:59 21:59 Intake Total 450 360 Output Total 650 375 Balance -200 -15 Intake & Output: Intake & Output 01/22/22 01/22/22 01/22/22 05:59 13:59 21:59 Intake Total 450 360 Output Total 650 375 Balance -200 -15 Intake: Oral 200 360 GI Tube Flush 250 Output: Void Amount 650 375 # of times incontinent of urine 0 Other: Meal Breakfast Percent of Meal Consumed 100% Urine Appearance Clear Clear Urine Color Yellow Bright Yellow # Voids 1 # Bowel Movements 0 # of times incontinent of 0 Bowels Head Head exam: Present atraumatic and normal inspection Eye Eye exam: Present normal appearance ENT ENT exam: Present mucous membranes moist, normal exam and normal external ear exam Additional comments: Nasal cannula in place Neck Neck exam: Present normal inspection Respiratory Respiratory exam: Present normal respiratory exam Cardiovascular Cardiovascular exam: Present irregular rhythm, systolic murmur and tachycardia GI/Abdominal GI/Abdominal exam: Present normal bowel sounds Back Exam Back exam: Present normal inspection Neurological Exam Neurological exam: Present alert and oriented X3 Skin Skin exam: Present intact and warm OBJ DATA Labs CBC & Chem 7: 01/22/22 05:36 01/22/22 05:36 Labs: Abnormal Lab Results 01/22/22 01/22/22 01/21/22 05:36 05:36 05:31 RBC 3.62 L Hgb 11.6 L Hct 34.3 L RDW 15.2 H Immature Gran % (Auto) 2.5 H Immature Gran # 0.22 H Sodium 132 L Chloride 94 L BUN 25 H Creatinine Glucose 113 H 138 H 01/20/22 05:40 RBC Hgb Hct RDW Immature Gran % (Auto) Immature Gran # Sodium Chloride BUN 27 H Creatinine 1.3 H Glucose 133 H Meds: Medications Acetaminophen (Acetaminophen 325 Mg Tablet) 650 mg PO Q6HP PRN; Protocol PRN Reason: Per Pain Protocol/Fever > 101 Last Admin: 01/22/22 09:53 Dose: 650 mg Albuterol Sulfate (Albuterol Sulfate 2.5 Mg/3 Ml Nebulizer) 2.5 mg NEB Q2HP PRN PRN Reason: Shortness Of Breath Albuterol/Ipratropium (Ipratropium/Albuterol 3 Ml Ampul.Neb) 3 ml NEB Q6HRT [facility] Last Admin: 01/22/22 12:57 Dose: 3 ml Allopurinol (Allopurinol 300 Mg Tablet) 300 mg PO QDAY [facility] Last Admin: 01/22/22 09:52 Dose: 300 mg Aspirin (Aspirin 81 Mg Tab.Chew) 81 mg PO DAILY [facility] Last Admin: 01/22/22 09:53 Dose: 81 mg Atorvastatin Calcium (Atorvastatin 20 Mg Tablet) 20 mg PO QDAY [facility] Last Admin: 01/22/22 09:53 Dose: 20 mg Budesonide (Budesonide 1 Puff Inhaler) 2 puff INH BID [facility] Last Admin: 01/22/22 09:53 Dose: 2 puff Dextrose (Dextrose 50% 50 Ml Vial) 0 ml IV UD PRN PRN Reason: Per Sliding Scale Diagnostic Test (Pha) (Accu-Chek 1 Each Strip) 1 each FS ACHS [facility] Last Admin: 01/22/22 12:05 Dose: 1 each Docusate Sodium (Docusate Sodium 100 Mg Capsule) 100 mg PO BID [facility] Last Admin: 01/22/22 09:53 Dose: 100 mg Donepezil HCl (Donepezil 10 Mg Tablet) 5 mg PO QDAY [facility] Last Admin: 01/22/22 09:52 Dose: 5 mg Duloxetine HCl (Duloxetine 30 Mg Capsule) 30 mg PO QDAY [facility] Last Admin: 01/22/22 09:53 Dose: 30 mg Famotidine (Famotidine 20 Mg Tablet) 20 mg PO QHS [facility] Last Admin: 01/21/22 20:13 Dose: 20 mg Furosemide (Furosemide 40 Mg Tablet) 40 mg PO DAILY [facility] Last Admin: 01/22/22 09:53 Dose: 40 mg Glucose (Dextrose 31 Gm Oral.Susp) 15 gm PO PRN PRN PRN Reason: Hypoglycemia Guaifenesin (Guaifenesin 600 Mg Tab.Sr.12h) 600 mg PO TID [facility] Last Admin: 01/22/22 09:52 Dose: 600 mg Heparin Sodium (Porcine) (Heparin 5,000 Unit/Ml Vial) 5,000 unit SQ Q12 [facility] Last Admin: 01/22/22 09:51 Dose: 5,000 unit Insulin Human Lispro (Insulin Lispro 1 Unit/0.01 Ml Unit) 0 unit SQ [facility]; Protocol Last Admin: 01/22/22 12:24 Dose: 1 units Lactulose (Lactulose 20 Gm/30 Ml Oral.Angie) 10 gm PO DAILYP PRN PRN Reason: Constipation Loratadine (Loratadine 10 Mg Tablet) 10 mg PO QDAY [facility] Last Admin: 01/22/22 09:53 Dose: 10 mg Magnesium Hydroxide (Magnesium Hydroxide 30 Ml Oral.Susp) 30 ml PO BIDP PRN PRN Reason: Constipation Metoprolol Succinate (Metoprolol Succinate 50 Mg Tab.Xl.24h) 150 mg PO BID [facility] Last Admin: 01/22/22 09:52 Dose: 150 mg Metoprolol Tartrate (Metoprolol Tartrate 5 Mg/5 Ml Vial) 5 mg IV Q4HP PRN PRN Reason: Tachyarrhythmias Last Admin: 01/20/22 14:00 Dose: 5 mg Ondansetron HCl (Ondansetron 4 Mg/2 Ml Vial) 4 mg IV Q6HP PRN PRN Reason: Nausea And Vomiting Nuplazid 34 Mg (Capsule) 1 dose PO QDAY [facility] Last Admin: 01/22/22 09:54 Dose: Not Given Polyethylene Glycol (Polyethylene Glycol 3350 17 Gm Packet) 17 gm PO DAILYP PRN PRN Reason: Constipation Quetiapine Fumarate (Quetiapine 100 Mg Tablet) 100 mg PO HS [facility] Last Admin: 01/21/22 20:13 Dose: 100 mg Senna (Sennosides 1 Tablet) 2 tab PO [facility] Last Admin: 01/21/22 20:14 Dose: 2 tab Sodium Chloride (0.9 % Sodium Chloride 10 Ml Syringe) 10 ml IV Q8 [facility] Last Admin: 01/22/22 05:09 Dose: 10 ml A/P Assessment and plan (1) Type 2 diabetes mellitus with hyperglycemia: Status: Chronic (2) Atrial fibrillation with RVR: Status: Acute (3) Dementia: Status: Chronic Comment: with lewy bodies Qualifiers: Dementia type: Lewy body dementia Dementia behavioral disturbance: without behavioral disturbance Qualified Code(s): G31.83 - Dementia with Lewy bodies; F02.80 - Dementia in other diseases classified elsewhere without behavioral disturbance (4) COPD (chronic obstructive pulmonary disease): Status: Chronic Qualifiers: COPD type: emphysema Emphysema type: centrilobular Qualified Code(s): J43.2 - Centrilobular emphysema (5) Mild aortic stenosis: Status: Acute Narrative A/P Narrative: Assessment and Plans: 1. Atrial fibrillation with RVR: Inpatient med surg telemetry [employer] Dr. Waite consulted, recs. appreciated As per Dr. Waite chef teacher, the goal of the rate control would be resting heart rate of less than or equal to 110 bpm, and patient is currently on metoprolol extended release 150 mg PO BID. I had a discussions with the family at the bedside regarding anticoagulations and the current decisions would be no anticoagulation due to increased fall risk 2. Mild aortic stenosis: Lasix 40mg PO daily as mild diuresis 3. h/o Dementia: Donepezil Duloxetine Seroquel Continue to monitor 4. h/o COPD, stable: Supplemental oxygen therapy titrate to achieve spo2 88-92% Jaja ECHOLS 5. T2DM: HgA1c d/c Piogitazone for risk for CHF, consider starting Jardiance at time of hospital discharge SSI AC HS Accu Chek AC HS Hypoglycemia protocol Diabetic diet GI ppx: Famotidine DVT ppx: Heparin Code status: DNR Prognosis: stable Dispsition: inpatient med surg telemetry; SNF Plan of Treatment: 1. Ideally patient should be initiated on anticoagulation with either a factor X or factor Xa inhibitor or a vitamin K antagonist with INR goal 2-3. Aspirin is not a substitute for anticoagulation for thromboembolic prophylaxis. I am aware that this discussion has occurred and POA has declined 2. Change dosage form of metoprolol to succinate. Increase dose to 150 mg twice daily. Continue increasing dose and 50 mg increments twice daily until resting heart rate is under 110. Resting heart rate under 110 is considered adequate for rate control. Time Spent With Patient Time: Total time spent is greater than 50% in coordination of care (as documented) at patient's floor/unit and/or counseling patient: Total time spent with greater than 50% in coordination of care (as documented) at patient's floor/unit and/or counseling patient:: 35 - 50 minutes QUALITY VTE Deep Vein Thrombosis/Pulmonary Embolism Present on Admission: No
[2022-01-22] MEDS: SENNOSIDES 1 TABLET PO SCH (21:47)
[2022-01-22] MEDS: FAMOTIDINE 20 MG TABLET PO SCH (21:48)
[2022-01-22] MEDS: QUEtiapine 100 MG TABLET PO SCH (21:48)
[2022-01-23] MEDS: IPRATROPIUM/ALBUTEROL 3 ML AMPUL.NEB NEB SCH ×2 (02:31→07:55)
[2022-01-23] MEDS: 0.9 % SODIUM CHLORIDE 10 ML SYRINGE IV SCH (05:44)
[2022-01-23 06:47] LABS: Basophils # (Auto) 0.06 K/mcL (0.00-0.30); Basophils % (Auto) 0.7 % (0.0-2.0); Eosinophils # (Auto) 0.24 K/mcL (0.00-0.70); Eosinophils % (Auto) 2.7 % (0.0-7.0); Hematocrit 35.9 % (40.1-51.0); Lymphocytes # (Auto) 1.79 K/mcL (1.50-4.80); Mean Corpuscular HGB Conc 33.4 g/dL (31.0-36.0); Mean Platelet Volume 8.6 fL (8.8-12.5); Monocytes # (Auto) 0.71 K/mcL (0.10-0.90); Monocytes % (Auto) 7.9 % (1.0-12.0); Neutrophils % (Auto) 66.4 % (38.0-78.0); Platelet Count 410 K/mcL (140-440); RBC 3.74 M/mcL (4.63-6.08); Red Cell Distribution Width 15.3 % (11.5-14.5); WBC 8.9 K/mcL (4.5-11.0)
[2022-01-23 07:10] LABS: ALT/SGPT 26 U/L (<40); AST/SGOT 21 U/L (<40); Albumin 3.6 gm/dL (3.2-5.2); Albumin/Globulin Ratio 0.9 (1.0-2.3); Alkaline Phosphatase 104 U/L (39-117); Bilirubin,Total 0.4 mg/dL (0.1-1.0); Blood Urea Nitrogen 28 mg/dL (8-23); Carbon Dioxide 25 mmol/L (22-30); Chloride 100 mmol/L (96-108); Glomerular Filtration Rate 47; Glucose 131 mg/dL (70-105)
[2022-01-23] MEDS: INSULIN LISPRO 1 UNIT/0.01 ML UNIT SQ SCH ×2 (07:20→11:41)
[2022-01-23] MEDS: HEPARIN 5,000 UNIT/ML VIAL SQ SCH (08:36)
[2022-01-23] MEDS: FUROSEMIDE 40 MG TABLET PO SCH (08:37)
[2022-01-23] MEDS: DONEPEZIL 10 MG TABLET PO SCH (08:37)
[2022-01-23] MEDS: ATORVASTATIN 20 MG TABLET PO SCH (08:37)
[2022-01-23] MEDS: guaiFENesin 600 MG TAB.SR.12H PO SCH (08:37)
[2022-01-23] MEDS: ASPIRIN 81 MG TAB.CHEW PO SCH (08:37)
[2022-01-23] MEDS: METOPROLOL SUCCINATE 50 MG TAB.XL.24H PO SCH (08:37)
[2022-01-23] MEDS: DOCUSATE SODIUM 100 MG CAPSULE PO SCH (08:37)
[2022-01-23] MEDS: LORATADINE 10 MG TABLET PO SCH (08:37)
[2022-01-23] MEDS: ALLOPURINOL 300 MG TABLET PO SCH (08:39)
[2022-01-23] MEDS: DULoxetine 30 MG CAPSULE PO SCH (08:39)
[2022-01-23] MEDS: BUDESONIDE 1 PUFF INHALER INH SCH (10:04)
--- NOTE | 2022-01-23 10:16 | Discharge Summary ---
Discharge Provider Provider IMPORTANT FOLLOW-UP INFORMATION FOR PCP: Patient information: Note initiated : 01/23/22 at 10:12 am Service Date, if different from initiated Date: [] Patient: Cliff Denton 76 y/o M admitted on 01/18/22 for Pneumonia. Chief Complaint: [] Date of admission: 01/18/22 00:37 Discharge date: 01/23/22 Primary care physician: John Herndon DO Attending physician on admission: Cj Erwin Consults: 01/17/22 22:47 Consult to Physician [CONS] Routine Comment: Consulting Provider: Cj Erwin Reason For Exam: Physician to Consult 01/21/22 07:54 Consult to Physician [CONS] Routine Comment: Consulting Provider: Anthony Hernandez Reason For Exam: Physician to Consult Attending physician on discharge: Chi Nathanael Pui COURSE Hospital Course Hospital course: Patient was admitted on January 18, 2022 for atrial fibrillation's. 2D echocardiogram showing atrial fibrillation's with preserved left ventricular systolic function with LVEF estimated to be 60 to 65%, mild aortic stenosis also seen. Stunt Double Dr. Waite consulted who recommended patient is on metoprolol extended release 150 mg p.o. twice daily for rate control. After discussions with the family at the bedside regarding risk and benefit of anticoagulations, the decision was made to not started the patient on anticoagu lation due to increased fall risk. Pioglitazone was discontinued due to the potential of making the CHF worse, and patient will be discharged with prescription of Jardiance. Patient was discharged back to assisted living facility on January 23, 2022. Prescriptions sent to pharmacy. 1 week PCP follow-up made for the patient. Discharge diagnosis: atrial fibrillation. Time Spent with Patient Time attestation: Total time spent providing and/or coordinating discharge services: Time spent: Greater than 30 minutes EXAM Constitutional Vitals: Temp Pulse Resp BP Pulse Ox O2 Del Method O2 Flow Rate 36.7 C 114 H 22 126/65 96 2 01/23/22 08:00 01/23/22 08:00 01/23/22 08:00 01/23/22 08:00 01/23/22 08:00 01/23/22 08:00 01/23/22 08:00 General appearance: cooperative and no acute distress Head Head exam: Present atraumatic and normocephalic Eye Eye exam: Present EOMI and PERRL ENT ENT exam: Present mucous membranes moist, normal exam and normal external ear exam Additional comments: Nasal cannula in place Neck Neck exam: Present normal inspection; Absent lymphadenopathy, tenderness or thyromegaly Respiratory Respiratory exam: Absent accessory muscle use, respiratory distress or wheezes Cardiovascular Cardiovascular exam: Present irregular rhythm; Absent JVD GI/Abdominal GI/Abdominal exam: Present normal bowel sounds and soft; Absent organomegaly or tenderness Rectal Rectal exam: Present deferred Extremities Exam Extremities exam: Present full ROM, normal capillary refill and normal inspection; Absent tenderness Neurological Exam Neurological exam: Present alert, CN II-XII intact and oriented X3; Absent motor sensory deficit Psychiatric Psychiatric exam: Present normal affect and normal mood; Absent anxious or depressed Skin Skin exam: Present dry and intact Discharge Data Data Completed and Pending Labs on day of discharge: Labs from last 24 hours 01/23/22 01/23/22 05:44 05:44 WBC 8.9 RBC 3.74 L Hgb 12.0 L Hct 35.9 L MCV 96.0 MCH 32.1 MCHC 33.4 RDW 15.3 H Plt Count 410 MPV 8.6 L Immature Gran % (Auto) 2.3 H Neut % (Auto) 66.4 Lymph % (Auto) 20.0 [place] % (Auto) 7.9 Eos % (Auto) 2.7 Baso % (Auto) 0.7 Lymph # (Auto) 1.79 [place] # (Auto) 0.71 Eos # (Auto) 0.24 Baso # (Auto) 0.06 Immature Gran # 0.21 H Absolute Neutrophils 5.93 Sodium 137 Potassium 4.1 Chloride 100 Carbon Dioxide 25 Anion Gap 12.0 BUN 28 H Creatinine 1.4 H GFR Calculation 47 Glucose 131 H Calcium 10.0 Phosphorus 4.0 Magnesium 2.2 Total Bilirubin 0.4 AST 21 ALT 26 Alkaline Phosphatase 104 Total Protein 7.6 Albumin 3.6 Globulin 4.0 H Albumin/Globulin Ratio 0.9 L Discharge Plan Patient/Caregiver Discharge Instructions Activity: increase activity as tolerated Diet: Consistent Carbohydrate Instructions: A-fib (Atrial Fibrillation) (GEN) Prescriptions: New furosemide 40 mg tablet 40 mg PO DAILY Qty: 60 4RF metoprolol tartrate 50 mg Tablet 75 mg PO BID Qty: 90 4RF quetiapine 100 mg Tablet 100 mg PO HS Qty: 30 4RF Jardiance 10 mg tablet 10 mg PO QAM Qty: 30 4RF Continued Sotero Aerosphere 160-9-4.8 mcg/actuation HFA aerosol inhaler 2 inh inhalation BID Qty: 10.7 0RF allopurinol 300 mg tablet 300 mg PO QDAY aspirin 81 mg tablet,delayed release (DR/EC) 81 mg PO QDAY duloxetine 30 mg capsule,delayed release(DR/EC) 30 mg PO QDAY loratadine 10 mg tablet 10 mg PO QDAY guaifenesin [Mucus Relief ER] 600 mg tablet extended release 12hr 600 mg PO TID rosuvastatin 10 mg tablet 10 mg PO QDAY albuterol sulfate 90 mcg/actuation HFA aerosol inhaler 2 puff inhalation Q6H PRN (Reason: shortness of breath or wheezing) Qty: 8.5 0RF donepezil 5 mg tablet 5 mg PO QDAY famotidine 20 mg tablet 20 mg PO QHS magnesium hydroxide 15 ml PO DAILY PRN (Reason: Constipation) polyethylene glycol 3350 [Miralax] 17 gram/dose powder 4 g PO QHS PRN (Reason: Constipation) hydrocortisone 1 % cream 1 applic topical PRN PRN (Reason: Rash) Nuplazid 34 mg 34 mg PO QDAY Discontinued losartan 100 mg tablet 100 mg PO QDAY metoprolol succinate 100 mg tablet extended release 24 hr 100 mg PO QDAY pioglitazone 15 mg tablet 15 mg PO QDAY quetiapine 300 mg tablet 300 mg PO QHS Follow Up Plan Follow up with: Kalie Michael MD [Physician] - (Review dose of Seroquel, reduced during hospitalization because of prolonged QT interval. ) John Herndon DO [Primary Care Provider] - Patient Disposition: Home, Self-Care Plan of Treatment: 1. Ideally patient should be initiated on anticoagulation with either a factor X or factor Xa inhibitor or a vitamin K antagonist with INR goal 2-3. Aspirin is not a substitute for anticoagulation for thromboembolic prophylaxis. I am aware that this discussion has occurred and POA has declined 2. Change dosage form of metoprolol to succinate. Increase dose to 150 mg twice daily. Continue increasing dose and 50 mg increments twice daily until resting heart rate is under 110. Resting heart rate under 110 is considered adequate for rate control. Rehab Potential: Good I certify that the patient requires SNF services: Yes Overall status at discharge: patient is progressing back to baseline Discharge Orders: Discharge Order (Routine); Ordered 01/23/22 Ordered By: Nicho CASTILLO VTE Deep Vein Thrombosis/Pulmonary Embolism Present on Admission: No
[2022-01-23] MEDS: NUPLAZID 34 MG CAPSULE PO SCH (11:30)
== END 2022-01-23 12:50 | disposition home health service (06) | DRG 310 ==
LOC: MEDSUR 01-18 00:37
PROVIDERS: ADMIT Internal Medicine; ATTEND Internal Medicine

== ENCOUNTER 2025-03-29 17:35 | Inpatient (IN) ==
[2025-03-29] MEDS: IPRATROPIUM/ALBUTEROL 3 ML AMPUL.NEB NEB ONE (18:24)
[2025-03-29 18:35] LABS: Basophils # (Auto) 0.03 K/mcL (0.00-0.30); Basophils % (Auto) 0.4 % (0.0-2.0); Eosinophils # (Auto) 0.13 K/mcL (0.00-0.70); Eosinophils % (Auto) 1.6 % (0.0-7.0); Hematocrit 36.1 % (40.1-51.0); Hemoglobin 11.7 g/dL (13.7-17.5); Lymphocytes # (Auto) 0.89 K/mcL (1.50-4.80); Lymphocytes % (Auto) 10.7 % (15.5-49.0); Mean Corpuscular HGB Conc 32.4 g/dL (31.0-36.0); Monocytes # (Auto) 0.72 K/mcL (0.10-0.90); Monocytes % (Auto) 8.6 % (1.0-12.0); Neutrophils % (Auto) 78.6 % (38.0-78.0); Platelet Count 208 K/mcL (140-440); RBC 3.70 M/mcL (4.63-6.08); WBC 8.4 K/mcL (4.5-11.0)
[2025-03-29] MEDS: FUROSEMIDE 100 MG/10 ML VIAL IV ONE (18:52)
[2025-03-29 18:56] LABS: Anion Gap 16.0 (8.0-16.0); Blood Urea Nitrogen 27 mg/dL (8-23); Calcium 9.4 mg/dL (8.6-10.4); Carbon Dioxide 24 mmol/L (22-30); Chloride 100 mmol/L (96-108); Glucose 110 mg/dL (70-105); Potassium 4.1 mmol/L (3.3-5.1); Sodium 140 mmol/L (133-145)
[2025-03-29] MEDS: ASPIRIN 81 MG TAB.CHEW CHEWED ONE (20:13)
[2025-03-29] MEDS ORDERED: NITROGLYCERIN/D5W 25 MG/250 ML BOTTLE IV SCH (20:15)
[2025-03-29] MEDS: 0.9 % SODIUM CHLORIDE 250 ML IV SCH (20:31)
[2025-03-29 21:03] LABS: ALT/SGPT 16 U/L (<40); AST/SGOT 15 U/L (<40); Albumin 4.1 gm/dL (3.2-5.2); Alkaline Phosphatase 69 U/L (39-117); Bilirubin,Direct 0.4 mg/dL (<0.3); Bilirubin,Total 0.6 mg/dL (0.1-1.0); Globulin 2.7 gm/dL (2.2-3.7)
[2025-03-29 22:00] LABS: C-Reactive Protein 1.83 mg/dL (0.03-0.80)
[2025-03-29] MEDS ORDERED: DEXTROSE 50% 50 ML VIAL IV PRN (22:58)
[2025-03-29] MEDS ORDERED: IPRATROPIUM/ALBUTEROL 3 ML AMPUL.NEB NEB PRN (22:58)
[2025-03-29] MEDS ORDERED: DEXTROSE 31 GM ORAL.SUSP PO PRN (22:58)
[2025-03-29] MEDS ORDERED: NITROGLYCERIN/D5W 25 MG/250 ML BOTTLE IV PRN (22:58)
[2025-03-29] MEDS ORDERED: ONDANSETRON 4 MG/2 ML VIAL IV PRN (22:58)
[2025-03-30 00:32] LABS: Anion Gap 15.0 (8.0-16.0); Blood Urea Nitrogen 26 mg/dL (8-23); Calcium 9.3 mg/dL (8.6-10.4); Carbon Dioxide 26 mmol/L (22-30); Chloride 99 mmol/L (96-108); Glucose 131 mg/dL (70-105); Potassium 3.7 mmol/L (3.3-5.1); Sodium 140 mmol/L (133-145)
[2025-03-30] MEDS: FUROSEMIDE 40 MG/4 ML VIAL IV SCH (01:36)
[2025-03-30 02:00] LABS: Phosphorous 4.4 mg/dL (2.5-4.5)
[2025-03-30 06:43] LABS: ALT/SGPT 14 U/L (<40); AST/SGOT 13 U/L (<40); Albumin 3.9 gm/dL (3.2-5.2); Albumin/Globulin Ratio 1.4 (1.0-2.3); Alkaline Phosphatase 68 U/L (39-117); Anion Gap 15.0 (8.0-16.0); Bilirubin,Direct 0.4 mg/dL (<0.3); Bilirubin,Total 0.8 mg/dL (0.1-1.0); Blood Urea Nitrogen 24 mg/dL (8-23); Calcium 9.1 mg/dL (8.6-10.4); Carbon Dioxide 27 mmol/L (22-30); Chloride 100 mmol/L (96-108); Globulin 2.7 gm/dL (2.2-3.7); Glucose 119 mg/dL (70-105); Phosphorous 4.8 mg/dL (2.5-4.5); Potassium 3.5 mmol/L (3.3-5.1); Sodium 142 mmol/L (133-145); Triglycerides 84 mg/dL (<150); Uric Acid 6.7 mg/dL (2.5-8.0)
[2025-03-30 06:50] LABS: Basophils # (Auto) 0.03 K/mcL (0.00-0.30); Basophils % (Auto) 0.5 % (0.0-2.0); Eosinophils # (Auto) 0.17 K/mcL (0.00-0.70); Eosinophils % (Auto) 2.8 % (0.0-7.0); Hematocrit 34.2 % (40.1-51.0); Hemoglobin 11.2 g/dL (13.7-17.5); Lymphocytes # (Auto) 0.82 K/mcL (1.50-4.80); Lymphocytes % (Auto) 13.5 % (15.5-49.0); Mean Corpuscular HGB Conc 32.7 g/dL (31.0-36.0); Monocytes # (Auto) 0.69 K/mcL (0.10-0.90); Monocytes % (Auto) 11.3 % (1.0-12.0); Neutrophils % (Auto) 71.9 % (38.0-78.0); Platelet Count 215 K/mcL (140-440); RBC 3.55 M/mcL (4.63-6.08); WBC 6.1 K/mcL (4.5-11.0)
[2025-03-30] MEDS: PANTOPRAZOLE 40 MG TABLET PO SCH (07:22)
[2025-03-30] MEDS: 0.9 % SODIUM CHLORIDE 10 ML SYRINGE IV SCH (07:23)
[2025-03-30] MEDS: INSULIN LISPRO 1 UNIT/0.01 ML UNIT SQ SCH (07:23)
[2025-03-30] MEDS: HEPARIN 5,000 UNIT/ML VIAL SQ SCH (08:17)
[2025-03-30] MEDS: NON FORMULARY MEDICATION 1 DOSE MISCELL (Budesonide-Glycopyr-Formoterol [Breztri Aerospher INHALATION SCH (08:18)
[2025-03-30] MEDS: MEMANTINE 10 MG TABLET PO SCH (08:18)
[2025-03-30] MEDS: ASPIRIN 81 MG TAB.CHEW PO SCH (08:18)
[2025-03-30] MEDS: DUTASTERIDE 0.5 MG CAPSULE PO SCH (08:18)
[2025-03-30] MEDS: METOPROLOL SUCCINATE 25 MG TAB.XL.24H PO SCH ×2 (08:18→20:24)
[2025-03-30] MEDS: POLYETHYLENE GLYCOL 3350 17 GM PACKET PO SCH (08:18)
[2025-03-30] MEDS: MIRTAZAPINE 15 MG TABLET PO SCH (20:24)
[2025-03-30] MEDS: ATORVASTATIN 20 MG TABLET PO SCH (20:24)
[2025-03-30] MEDS: Budesonide-Glycopyr-Formoterol [Breztri Aerosphere] Inhaler INH SCH (20:25)
[2025-03-30] MEDS ORDERED: ROSUVASTATIN 10 MG TABLET PO SCH (21:00)
[2025-03-30 21:40] LABS: Anion Gap 14.0 (8.0-16.0); Carbon Dioxide 28 mmol/L (22-30); Chloride 96 mmol/L (96-108); Potassium 3.5 mmol/L (3.3-5.1); Sodium 138 mmol/L (133-145)
[2025-03-31 05:42] LABS: Basophils # (Auto) 0.03 K/mcL (0.00-0.30); Basophils % (Auto) 0.6 % (0.0-2.0); Eosinophils # (Auto) 0.25 K/mcL (0.00-0.70); Eosinophils % (Auto) 4.9 % (0.0-7.0); Hematocrit 37.3 % (40.1-51.0); Hemoglobin 12.4 g/dL (13.7-17.5); Lymphocytes # (Auto) 0.94 K/mcL (1.50-4.80); Lymphocytes % (Auto) 18.3 % (15.5-49.0); Mean Corpuscular HGB Conc 33.2 g/dL (31.0-36.0); Monocytes # (Auto) 0.72 K/mcL (0.10-0.90); Monocytes % (Auto) 14.0 % (1.0-12.0); Neutrophils % (Auto) 62.0 % (38.0-78.0); Platelet Count 213 K/mcL (140-440); RBC 3.88 M/mcL (4.63-6.08); WBC 5.1 K/mcL (4.5-11.0)
[2025-03-31 06:02] LABS: ALT/SGPT 13 U/L (<40); AST/SGOT 13 U/L (<40); Albumin 3.9 gm/dL (3.2-5.2); Albumin/Globulin Ratio 1.4 (1.0-2.3); Alkaline Phosphatase 69 U/L (39-117); Anion Gap 14.0 (8.0-16.0); Bilirubin,Direct 0.4 mg/dL (<0.3); Bilirubin,Total 0.6 mg/dL (0.1-1.0); Blood Urea Nitrogen 32 mg/dL (8-23); Calcium 9.3 mg/dL (8.6-10.4); Carbon Dioxide 29 mmol/L (22-30); Chloride 98 mmol/L (96-108); Globulin 2.8 gm/dL (2.2-3.7); Glucose 128 mg/dL (70-105); Phosphorous 5.0 mg/dL (2.5-4.5); Potassium 3.5 mmol/L (3.3-5.1); Sodium 141 mmol/L (133-145); Triglycerides 171 mg/dL (<150); Uric Acid 7.6 mg/dL (2.5-8.0)
[2025-03-31] MEDS: ALBUMIN HUMAN 25 GM/100 ML BAG IV SCH ×2 (07:31→13:27)
[2025-03-31] MEDS: FUROSEMIDE 40 MG/4 ML VIAL IV SCH ×2 (07:32→13:59)
[2025-03-31] MEDS: PIMAVANSERIN 34 MG PO SCH (08:17)
[2025-03-31 11:54] LABS: Anion Gap 15.0 (8.0-16.0); Blood Urea Nitrogen 32 mg/dL (8-23); Calcium 9.2 mg/dL (8.6-10.4); Carbon Dioxide 27 mmol/L (22-30); Chloride 96 mmol/L (96-108); Glucose 130 mg/dL (70-105); Potassium 3.7 mmol/L (3.3-5.1); Sodium 138 mmol/L (133-145)
[2025-03-31] MEDS: POTASSIUM CHLORIDE 20 MEQ TABLET PO ONE (12:23)
[2025-03-31] MEDS: METOPROLOL SUCCINATE 25 MG TAB.XL.24H PO ONE (13:27)
[2025-03-31] MEDS: 0.9 % SODIUM CHLORIDE 500 ML IV ONE (13:48)
[2025-04-01 06:50] LABS: ALT/SGPT 9 U/L (<40); AST/SGOT 14 U/L (<40); Albumin 3.9 gm/dL (3.2-5.2); Albumin/Globulin Ratio 1.4 (1.0-2.3); Alkaline Phosphatase 66 U/L (39-117); Anion Gap 14.0 (8.0-16.0); Bilirubin,Direct 0.3 mg/dL (<0.3); Bilirubin,Total 0.5 mg/dL (0.1-1.0); Blood Urea Nitrogen 35 mg/dL (8-23); Calcium 9.4 mg/dL (8.6-10.4); Carbon Dioxide 28 mmol/L (22-30); Chloride 97 mmol/L (96-108); Globulin 2.7 gm/dL (2.2-3.7); Glucose 122 mg/dL (70-105); Phosphorous 4.9 mg/dL (2.5-4.5); Potassium 3.5 mmol/L (3.3-5.1); Sodium 139 mmol/L (133-145); Triglycerides 189 mg/dL (<150); Uric Acid 8.0 mg/dL (2.5-8.0)
[2025-04-01 07:00] LABS: Basophils # (Auto) 0.02 K/mcL (0.00-0.30); Basophils % (Auto) 0.3 % (0.0-2.0); Eosinophils # (Auto) 0.31 K/mcL (0.00-0.70); Eosinophils % (Auto) 5.1 % (0.0-7.0); Hematocrit 37.2 % (40.1-51.0); Hemoglobin 12.2 g/dL (13.7-17.5); Lymphocytes # (Auto) 1.10 K/mcL (1.50-4.80); Lymphocytes % (Auto) 18.3 % (15.5-49.0); Mean Corpuscular HGB Conc 32.8 g/dL (31.0-36.0); Monocytes # (Auto) 0.77 K/mcL (0.10-0.90); Monocytes % (Auto) 12.8 % (1.0-12.0); Neutrophils % (Auto) 63.3 % (38.0-78.0); Platelet Count 228 K/mcL (140-440); RBC 3.84 M/mcL (4.63-6.08); WBC 6.0 K/mcL (4.5-11.0)
[2025-04-01] MEDS: METOPROLOL SUCCINATE 25 MG TAB.XL.24H PO SCH (08:16)
[2025-04-01] MEDS: FUROSEMIDE 40 MG TABLET PO SCH (20:03)
[2025-04-02 06:10] LABS: Basophils # (Auto) 0.03 K/mcL (0.00-0.30); Basophils % (Auto) 0.5 % (0.0-2.0); Eosinophils # (Auto) 0.29 K/mcL (0.00-0.70); Eosinophils % (Auto) 5.3 % (0.0-7.0); Hematocrit 37.4 % (40.1-51.0); Hemoglobin 12.1 g/dL (13.7-17.5); Lymphocytes # (Auto) 1.09 K/mcL (1.50-4.80); Lymphocytes % (Auto) 19.9 % (15.5-49.0); Mean Corpuscular HGB Conc 32.4 g/dL (31.0-36.0); Monocytes # (Auto) 0.71 K/mcL (0.10-0.90); Monocytes % (Auto) 13.0 % (1.0-12.0); Neutrophils % (Auto) 61.1 % (38.0-78.0); Platelet Count 246 K/mcL (140-440); RBC 3.83 M/mcL (4.63-6.08); WBC 5.5 K/mcL (4.5-11.0)
[2025-04-02 06:26] LABS: ALT/SGPT 10 U/L (<40); AST/SGOT 15 U/L (<40); Albumin 3.8 gm/dL (3.2-5.2); Albumin/Globulin Ratio 1.4 (1.0-2.3); Alkaline Phosphatase 68 U/L (39-117); Anion Gap 13.0 (8.0-16.0); Bilirubin,Direct 0.2 mg/dL (<0.3); Bilirubin,Total 0.5 mg/dL (0.1-1.0); Blood Urea Nitrogen 38 mg/dL (8-23); Calcium 9.3 mg/dL (8.6-10.4); Carbon Dioxide 27 mmol/L (22-30); Chloride 100 mmol/L (96-108); Globulin 2.8 gm/dL (2.2-3.7); Glucose 121 mg/dL (70-105); Phosphorous 4.4 mg/dL (2.5-4.5); Potassium 3.7 mmol/L (3.3-5.1); Sodium 140 mmol/L (133-145); Triglycerides 221 mg/dL (<150); Uric Acid 8.0 mg/dL (2.5-8.0)
[2025-04-02] MEDS: ALLOPURINOL 300 MG TABLET PO SCH (10:15)
[2025-04-03 06:53] LABS: Basophils # (Auto) 0.04 K/mcL (0.00-0.30); Basophils % (Auto) 0.8 % (0.0-2.0); Eosinophils # (Auto) 0.26 K/mcL (0.00-0.70); Eosinophils % (Auto) 5.0 % (0.0-7.0); Hematocrit 36.4 % (40.1-51.0); Hemoglobin 11.8 g/dL (13.7-17.5); Lymphocytes # (Auto) 1.12 K/mcL (1.50-4.80); Lymphocytes % (Auto) 21.6 % (15.5-49.0); Mean Corpuscular HGB Conc 32.4 g/dL (31.0-36.0); Monocytes # (Auto) 0.67 K/mcL (0.10-0.90); Monocytes % (Auto) 12.9 % (1.0-12.0); Neutrophils % (Auto) 59.5 % (38.0-78.0); Platelet Count 239 K/mcL (140-440); RBC 3.74 M/mcL (4.63-6.08); WBC 5.2 K/mcL (4.5-11.0)
[2025-04-03 07:02] LABS: ALT/SGPT 10 U/L (<40); AST/SGOT 13 U/L (<40); Albumin 3.7 gm/dL (3.2-5.2); Albumin/Globulin Ratio 1.5 (1.0-2.3); Alkaline Phosphatase 68 U/L (39-117); Anion Gap 13.0 (8.0-16.0); Bilirubin,Direct 0.2 mg/dL (<0.3); Bilirubin,Total 0.4 mg/dL (0.1-1.0); Blood Urea Nitrogen 36 mg/dL (8-23); Calcium 9.1 mg/dL (8.6-10.4); Carbon Dioxide 26 mmol/L (22-30); Chloride 101 mmol/L (96-108); Globulin 2.5 gm/dL (2.2-3.7); Glucose 120 mg/dL (70-105); Phosphorous 4.0 mg/dL (2.5-4.5); Potassium 3.6 mmol/L (3.3-5.1); Sodium 140 mmol/L (133-145); Triglycerides 156 mg/dL (<150); Uric Acid 7.5 mg/dL (2.5-8.0)
[2025-04-03 12:01] LABS: Bilirubin,Urine Negative (Negative); Color,Urine DK. RED; Ketones,Urine TRACE mg/dL (Negative); Leukocyte Esterase,Urine MODERATE /uL (Negative); PH,Urine 6.5 (5.0-9.0); Protein,Urine >=300 mg/dL (Negative); Specific Gravity,Urine 1.015 (1.000-1.035)
[2025-04-03] MEDS: HYDROmorphone 0.5 MG/0.5 ML SYRINGE IV ONE (13:47)
[2025-04-03] MEDS: ACETAMINOPHEN 325 MG TABLET PO PRN (14:15)
[2025-04-03] MEDS: HYDROmorphone 0.5 MG/0.5 ML SYRINGE ONE (14:27)
[2025-04-03] MEDS ORDERED: NALOXONE HCL 0.4 MG/ML VIAL IV PRN (15:24)
[2025-04-03] MEDS: NALOXONE HCL 0.4 MG/ML VIAL IV ONE (17:05)
[2025-04-04] MEDS: OXYBUTYNIN CHLORIDE 5 MG TAB.XL.24H PO ONE (05:55)
[2025-04-04 06:10] LABS: Basophils # (Auto) 0.02 K/mcL (0.00-0.30); Basophils % (Auto) 0.3 % (0.0-2.0); Eosinophils # (Auto) 0.28 K/mcL (0.00-0.70); Eosinophils % (Auto) 3.8 % (0.0-7.0); Hematocrit 37.2 % (40.1-51.0); Hemoglobin 11.9 g/dL (13.7-17.5); Lymphocytes # (Auto) 0.98 K/mcL (1.50-4.80); Lymphocytes % (Auto) 13.4 % (15.5-49.0); Mean Corpuscular HGB Conc 32.0 g/dL (31.0-36.0); Monocytes # (Auto) 0.88 K/mcL (0.10-0.90); Monocytes % (Auto) 12.0 % (1.0-12.0); Neutrophils % (Auto) 70.4 % (38.0-78.0); Platelet Count 240 K/mcL (140-440); RBC 3.77 M/mcL (4.63-6.08); WBC 7.3 K/mcL (4.5-11.0)
[2025-04-04 06:36] LABS: ALT/SGPT 13 U/L (<40); AST/SGOT 14 U/L (<40); Albumin 3.8 gm/dL (3.2-5.2); Albumin/Globulin Ratio 1.4 (1.0-2.3); Alkaline Phosphatase 72 U/L (39-117); Anion Gap 11.0 (8.0-16.0); Bilirubin,Direct 0.2 mg/dL (<0.3); Bilirubin,Total 0.3 mg/dL (0.1-1.0); Blood Urea Nitrogen 30 mg/dL (8-23); Calcium 9.4 mg/dL (8.6-10.4); Carbon Dioxide 29 mmol/L (22-30); Chloride 99 mmol/L (96-108); Globulin 2.8 gm/dL (2.2-3.7); Glucose 147 mg/dL (70-105); Phosphorous 3.6 mg/dL (2.5-4.5); Potassium 4.3 mmol/L (3.3-5.1); Sodium 139 mmol/L (133-145); Triglycerides 141 mg/dL (<150); Uric Acid 6.7 mg/dL (2.5-8.0)
[2025-04-04] MEDS ORDERED: VANCOMYCIN PER PHARMACY IV SCH (17:30)
[2025-04-04] MEDS: VANCOMYCIN 1,500 MG in 0.9 % SODIUM CHLORIDE 500 ML IV ONE (20:04)
[2025-04-05 06:36] LABS: ALT/SGPT 12 U/L (<40); AST/SGOT 15 U/L (<40); Albumin 3.6 gm/dL (3.2-5.2); Albumin/Globulin Ratio 1.5 (1.0-2.3); Alkaline Phosphatase 70 U/L (39-117); Anion Gap 10.0 (8.0-16.0); Bilirubin,Direct 0.2 mg/dL (<0.3); Bilirubin,Total 0.4 mg/dL (0.1-1.0); Blood Urea Nitrogen 23 mg/dL (8-23); Calcium 9.0 mg/dL (8.6-10.4); Carbon Dioxide 26 mmol/L (22-30); Chloride 101 mmol/L (96-108); Globulin 2.4 gm/dL (2.2-3.7); Glucose 128 mg/dL (70-105); Phosphorous 3.2 mg/dL (2.5-4.5); Potassium 3.9 mmol/L (3.3-5.1); Sodium 137 mmol/L (133-145); Triglycerides 105 mg/dL (<150); Uric Acid 5.6 mg/dL (2.5-8.0)
[2025-04-05 07:04] LABS: Basophils # (Auto) 0.02 K/mcL (0.00-0.30); Basophils % (Auto) 0.3 % (0.0-2.0); Eosinophils # (Auto) 0.27 K/mcL (0.00-0.70); Eosinophils % (Auto) 3.5 % (0.0-7.0); Hematocrit 32.9 % (40.1-51.0); Hemoglobin 10.8 g/dL (13.7-17.5); Lymphocytes # (Auto) 1.06 K/mcL (1.50-4.80); Lymphocytes % (Auto) 13.8 % (15.5-49.0); Mean Corpuscular HGB Conc 32.8 g/dL (31.0-36.0); Monocytes # (Auto) 0.94 K/mcL (0.10-0.90); Monocytes % (Auto) 12.2 % (1.0-12.0); Neutrophils % (Auto) 70.1 % (38.0-78.0); Platelet Count 227 K/mcL (140-440); RBC 3.41 M/mcL (4.63-6.08); WBC 7.7 K/mcL (4.5-11.0)
[2025-04-05] MEDS: OXYBUTYNIN CHLORIDE 5 MG TAB.XL.24H PO SCH (08:38)
[2025-04-05] MEDS: FUROSEMIDE 40 MG TABLET PO SCH (09:37)
[2025-04-05] MEDS: VANCOMYCIN 1,500 MG in 0.9 % SODIUM CHLORIDE 500 ML IV SCH (09:37)
[2025-04-05] MEDS: TAMSULOSIN 0.4 MG CAPSULE PO SCH (21:55)
[2025-04-05] MEDS: TAMSULOSIN 0.4 MG CAPSULE PO ONE (21:59)
[2025-04-06 06:38] LABS: ALT/SGPT 12 U/L (<40); AST/SGOT 12 U/L (<40); Albumin 3.6 gm/dL (3.2-5.2); Albumin/Globulin Ratio 1.3 (1.0-2.3); Alkaline Phosphatase 72 U/L (39-117); Anion Gap 10.0 (8.0-16.0); Bilirubin,Direct 0.3 mg/dL (<0.3); Bilirubin,Total 0.5 mg/dL (0.1-1.0); Blood Urea Nitrogen 21 mg/dL (8-23); Calcium 9.2 mg/dL (8.6-10.4); Carbon Dioxide 26 mmol/L (22-30); Chloride 102 mmol/L (96-108); Globulin 2.7 gm/dL (2.2-3.7); Glucose 119 mg/dL (70-105); Phosphorous 3.1 mg/dL (2.5-4.5); Potassium 3.4 mmol/L (3.3-5.1); Sodium 138 mmol/L (133-145); Triglycerides 105 mg/dL (<150); Uric Acid 5.7 mg/dL (2.5-8.0)
[2025-04-06 06:54] LABS: Basophils # (Auto) 0.04 K/mcL (0.00-0.30); Basophils % (Auto) 0.5 % (0.0-2.0); Eosinophils # (Auto) 0.30 K/mcL (0.00-0.70); Eosinophils % (Auto) 3.7 % (0.0-7.0); Hematocrit 32.6 % (40.1-51.0); Hemoglobin 10.6 g/dL (13.7-17.5); Lymphocytes # (Auto) 1.13 K/mcL (1.50-4.80); Lymphocytes % (Auto) 14.1 % (15.5-49.0); Mean Corpuscular HGB Conc 32.5 g/dL (31.0-36.0); Monocytes # (Auto) 0.86 K/mcL (0.10-0.90); Monocytes % (Auto) 10.7 % (1.0-12.0); Neutrophils % (Auto) 70.8 % (38.0-78.0); Platelet Count 248 K/mcL (140-440); RBC 3.36 M/mcL (4.63-6.08); WBC 8.0 K/mcL (4.5-11.0)
[2025-04-06] MEDS: FUROSEMIDE 20 MG/2 ML VIAL IV ONE (10:20)
[2025-04-06] MEDS: METOPROLOL TARTRATE 5 MG/5 ML VIAL IV PRN (11:06)
[2025-04-06 13:48] LABS: Bilirubin,Urine Negative (Negative); Color,Urine YELLOW; Glucose,Urine (UA) >=500 mg/dL (Negative); Ketones,Urine Negative (Negative); Leukocyte Esterase,Urine 500 /uL (Negative); Mucus,Urine FEW /hpf; PH,Urine 5.0 (5.0-9.0); Protein,Urine 100 mg/dL (Negative); Specific Gravity,Urine 1.009 (1.000-1.035); Urobilinogen,Urine 2.0 mg/dL
[2025-04-06] MEDS: POTASSIUM CHLORIDE 20 MEQ TABLET PO ONE ×2 (21:27→21:35)
[2025-04-07 06:48] LABS: ALT/SGPT 13 U/L (<40); AST/SGOT 13 U/L (<40); Albumin 3.4 gm/dL (3.2-5.2); Albumin/Globulin Ratio 1.3 (1.0-2.3); Alkaline Phosphatase 70 U/L (39-117); Anion Gap 12.0 (8.0-16.0); Bilirubin,Direct 0.2 mg/dL (<0.3); Bilirubin,Total 0.4 mg/dL (0.1-1.0); Blood Urea Nitrogen 26 mg/dL (8-23); Calcium 9.0 mg/dL (8.6-10.4); Carbon Dioxide 24 mmol/L (22-30); Chloride 104 mmol/L (96-108); Globulin 2.7 gm/dL (2.2-3.7); Glucose 109 mg/dL (70-105); Phosphorous 3.9 mg/dL (2.5-4.5); Potassium 3.5 mmol/L (3.3-5.1); Sodium 140 mmol/L (133-145); Triglycerides 77 mg/dL (<150); Uric Acid 6.2 mg/dL (2.5-8.0)
[2025-04-07 06:59] LABS: Basophils # (Auto) 0.04 K/mcL (0.00-0.30); Basophils % (Auto) 0.5 % (0.0-2.0); Eosinophils # (Auto) 0.27 K/mcL (0.00-0.70); Eosinophils % (Auto) 3.5 % (0.0-7.0); Hematocrit 31.4 % (40.1-51.0); Hemoglobin 10.1 g/dL (13.7-17.5); Lymphocytes # (Auto) 1.03 K/mcL (1.50-4.80); Lymphocytes % (Auto) 13.5 % (15.5-49.0); Mean Corpuscular HGB Conc 32.2 g/dL (31.0-36.0); Monocytes # (Auto) 0.73 K/mcL (0.10-0.90); Monocytes % (Auto) 9.6 % (1.0-12.0); Neutrophils % (Auto) 72.6 % (38.0-78.0); Platelet Count 251 K/mcL (140-440); RBC 3.18 M/mcL (4.63-6.08); WBC 7.6 K/mcL (4.5-11.0)
[2025-04-08 11:20] VITALS: TEMP 97.8; O2SAT 97
== END 2025-04-08 14:45 | DRG 291 ==
LOC: ED 17:35 → ICU 22:47 → MEDSUR 04-05 15:44
PROVIDERS: ADMIT Student in an Organized Health Care Education/Training Program; ATTEND Internal Medicine